=== PATIENT | male | born 1960 | race Caucasian/White ===

== ENCOUNTER 2016-06-08 12:39 | Inpatient (IN) ==
[2016-06-08] MEDS ORDERED: *HR* Ticagrelor 90 MG TABLET PO ONE (12:47)
[2016-06-08] MEDS ORDERED: Aspirin 81 MG TAB.CHEW ONE (12:47)
[2016-06-08] MEDS ORDERED: *HR* Morphine 2 MG/ML SYRINGE IVP ONE (12:48)
[2016-06-08] MEDS ORDERED: 0.9 % Sodium Chloride 1,000 ML ONE ×2 (12:48→12:57)
[2016-06-08] MEDS ORDERED: *HR* Heparin 5,000 UNIT/ML VIAL ONE (12:48)
[2016-06-08] MEDS ORDERED: *HR* Ticagrelor 90 MG TABLET ONE ×2 (12:48→14:05)
[2016-06-08] MEDS ORDERED: Aspirin 325 MG TABLET PO ONE (12:48)
[2016-06-08] MEDS ORDERED: Ondansetron 4 MG/2 ML VIAL IVP ONE (12:49)
[2016-06-08] MEDS ORDERED: *HR* Heparin 5,000 UNIT/ML VIAL IVP ONE (12:50)
--- NOTE | 2016-06-08 12:54 | Emergency Department Note ---
Disposition Clinical Impression: ST elevation myocardial infarction (STEMI), Hypertension, Hyperlipidemia, Smoker, Obesity, CAD (coronary artery disease) Disposition: Admitted As Inpatient Condition: Fair Referrals: NO,PCP [Primary Care Provider] - Forms: ED Satisfaction Letter General Adult HPI - General Chief complaint: ED Chest Pain Stated complaint: chest pain Time Seen by Provider: 06/08/16 12:47 Source: EMS Limitations: no limitations - History of Present Illness HPI Narrative: 55-year-old male reports to the ED via EMS, he reports he developed midsternal chest pain radiating to both arms and to the back about 10 minutes prior to calling EMS. The patient has a history of known coronary artery disease with multiple stents. The patient has a history of hypertension and hyperlipidemia obesity and smoking as well. The patient describes midsternal pain which has been unrelenting with nitroglycerin. The pain radiates to the back and both arms. The pain is not associated with breathing. There is no history of fever or rash. There is no history of fall injury coughing up blood or seizure. No leg swelling or pain. The patient denies previous histories of DVT PE or cancer. The patient denies a previous history of thoracic or abdominal aneurysm. There has been no trauma. No offing. No vomiting or diarrhea. No trouble walking talking hearing seeing or speaking, no history of dysarthria or confusion. The patient reports he has been evaluated at this institution before for coronary disease and has had a catheterization here. Pain Scale: 9 - Related Data Home Medications Medication Instructions Recorded Confirmed Aclidinium Katy [Tudorza 400 mcg IH BID 11/15/15 06/04/16 Pressair] Albuterol Sulfate [Proair 2 puff PO DAILY 11/15/15 06/04/16 Respiclick] Aspirin [Lo-Dose Aspirin EC] 81 mg PO DAILY 11/15/15 06/04/16 Butalbital/Aspirin/Caffeine 1 each PO Q4H PRN 11/15/15 06/04/16 [Fiorinal 50-325-40 mg Capsule] ClonazePAM [Klonopin] 1 mg PO BID 11/15/15 06/04/16 Clopidogrel [Plavix] 75 mg PO DAILY 11/15/15 06/04/16 Lisinopril [Zestril] 40 mg PO DAILY 11/15/15 06/04/16 Lovastatin [Altoprev] 40 mg PO DAILY 11/15/15 06/04/16 Metoprolol [Lopressor] 50 mg PO BID 11/15/15 06/04/16 Nitroglycerin [Nitrostat] 0.4 mg SL Q2-5MIN PRN 11/15/15 06/04/16 Oxycodone HCl/Acetaminophen 1 tab PO Q6H PRN 11/15/15 06/04/16 [Percocet 10-325 mg Tablet] Paroxetine [Paxil] 20 mg PO DAILY 11/15/15 06/04/16 Pregabalin [Lyrica] 150 mg PO BID 11/15/15 06/04/16 Roflumilast [Daliresp] 500 mcg PO DAILY 11/15/15 06/04/16 Aclidinium Katy [Tudorza 400 mcg IH BID 06/04/16 06/04/16 Pressair] Albuterol Sulfate [Ventolin Hfa] 18 gm IH BID 06/04/16 06/04/16 Albuterol Sulfate [Ventolin Hfa] 18 gm IH PRN PRN 06/04/16 06/04/16 Butalb/Acetaminophen/Caffeine 1 each PO PRN PRN 06/04/16 06/04/16 [Fioricet 50-300-40 mg Capsule] Previous Rx's Medication Instructions Recorded Isosorbide MONOnitrate (24 HR) 30 mg PO BID #0 11/15/15 [Imdur] PredniSONE 40 mg PO DAILY #10 tablet 06/04/16 Allergies Allergy/AdvReac Type Severity Reaction Status Date / Time acetaminophen AdvReac Nausea Verified 06/08/16 13:01 [From Darvocet-N] gabapentin [From Neurontin] AdvReac Nausea Verified 06/08/16 13:01 promethazine [From Phenergan] AdvReac See Verified 06/08/16 13:01 Comments propoxyphene AdvReac Nausea Verified 06/08/16 13:01 [From Darvocet-N] All systems ED: reviewed and negative except as stated. Past Medical History - Past Medical History Medical history: Reports: asthma, COPD, coronary artery disease, GERD, hyperlipidemia, hypertension, other Surgical history: Reports: angioplasty/stent, cholecystectomy, orthopedic, other Psychiatric history: Reports: depression - Social History Smoking Status: Current every day smoker Smokeless Tobacco Status: No Alcohol use: Reports: none Drug use: Reports: none Physical Exam - General Limitations: no limitations General appearance: alert - Head Head exam: atraumatic, normocephalic, normal inspection - Eye Eye exam: Present: normal appearance, PERRL, EOMI - ENT ENT exam: normal exam, normal oropharynx, mucous membranes moist - Neck Neck exam: Present: normal inspection, full ROM, trachea midline - Chest Chest inspection: Present: normal inspection, symmetric chest wall rise. Absent : tenderness - Respiratory Respiratory exam: Present: normal lung sounds bilaterally. Absent: respiratory distress - Cardiovascular Cardiovascular exam: Present: regular rate, normal rhythm, normal heart sounds - Abdominal Exam Abdominal exam: Present: soft, Non-Tender. Absent: tenderness, distention, guarding, rebound, rigidity, pulsatile mass - Extremities Exam Extremities exam: Present: normal inspection, full ROM, normal capillary refill. Absent: tenderness, pedal edema, joint swelling, calf tenderness - Expanded Lower Extremity Exam Lower leg exam: Absent: Homans' sign Neurovascular/Tendon exam: Present: normal capillary refill. Absent: pulse deficit, motor deficit, sensory deficit, tendon deficit - Back Exam Back exam: Present: normal inspection, full ROM. Absent: tenderness, CVA tenderness (R), CVA tenderness (L), vertebral tenderness - Neurological Exam Neurological exam: Present: alert, oriented X3, CN II-XII intact. Absent: motor sensory deficit - Psychiatric Psychiatric exam: Present: normal affect, normal mood - Skin Skin exam: Present: warm, dry, intact, normal color. Absent: rash, cyanosis, diaphoresis, erythema, pallor, mottled Course Vital Signs Temperature 97.3 F L 06/08/16 12:40 Pulse Rate 73 06/08/16 12:40 Respiratory Rate 18 06/08/16 12:40 Blood Pressure 180/107 06/08/16 12:40 O2 Sat by Pulse Oximetry 98 06/08/16 12:40 Temperature 97.3 F L 06/08/16 12:40 Pulse Rate 83 06/08/16 12:50 Respiratory Rate 20 06/08/16 12:50 Blood Pressure 170/105 06/08/16 12:50 O2 Sat by Pulse Oximetry 98 06/08/16 12:50 Oxygen Delivery Oxygen Delivery Nasal Cannula Medical Decision Making - MDM Narrative Medical decision making narrative: The patient's EKG shows significant ST elevations in V3 45. Compared to a previous EKG this is a significant change, he appears to have an STEMI based on electrocardiography. The patient has known coronary disease and describes symptoms consistent with acute coronary syndrome. Upon review the EKG I called a code STEMI and spoke with Dr. Goff ui developer with [employer] regarding our findings and clinical concerns regarding STEMI. Dr. Goff recommended Brilinta and a heparin bolus. These were ordered. Morphine and Zofran were also ordered as well as aspirin. The patient has had no recent trauma, he denies rectal bleeding or any bleeding concerns, he has no personal history of intra- abdominal or intrathoracic aneurysm. Initial laboratory and radiographic studies were ordered. The patient is currently stable pending catheter lab intervention. - Medical Records Medical records reviewed: Yes I reviewed the patient's medical records.
[2016-06-08] MEDS ORDERED: *HR* Midazolam HCl 5 MG/5 ML VIAL IVP ONE (12:56)
[2016-06-08] MEDS ORDERED: *HR* FentaNYL (PF) 250 MCG/5 ML VIAL ONE (12:56)
[2016-06-08] MEDS ORDERED: Heparin 1,000 UNITS/500 mL NS 500 ML ONE (12:57)
[2016-06-08] MEDS ORDERED: *HR* Heparin 10,000 UNIT/10 ML VIAL ONE (12:57)
[2016-06-08 13:03] LABS: Basophils % 0.1 %; Hematocrit 44.8 % (37.5-50.1); Hemoglobin 15.6 g/dL (12.9-16.9); Immature Granulocytes % 1.2 % (0-4); Lymphocytes # 1.4 K/mcL (0.6-4.6); Lymphocytes % 6.9 %; Mean Corpuscular HGB Conc 34.8 g/dL (31.6-35.5); Mean Corpuscular Hemoglobin 29.2 pg (28.0-33.3); Mean Corpuscular Volume 83.9 fL (83.0-100.0); Mean Platelet Volume 10.9 fL (9.4-12.4); Monocytes # 1.5 K/mcL (0.0-1.3); Monocytes % 7.4 %; Neutrophils # 17.4 K/mcL (1.6-8.9); Platelet Count 221 K/mcL (140-400); Red Blood Count 5.34 M/mcL (4.19-5.50); Red Cell Distribution Width 12.4 % (11.5-14.5); Segmented Neutrophils % 84.4 %
[2016-06-08] MEDS ORDERED: Nitroglycerin 1,000 MCG/10 ML VIAL IV ONE (13:03)
[2016-06-08 13:12] LABS: INR 1.1; Prothrombin Time 11.5 Seconds (9.4-12.1)
[2016-06-08 13:14] LABS: Activated Partial Thrombo Time 26.3 Seconds (26.0-36.0)
[2016-06-08 13:17] LABS: BUN/Creatinine Ratio 19 (6-26); Blood Urea Nitrogen 21 mg/dL (8-26); Calcium 9.7 mg/dL (8.6-10.8); Carbon Dioxide 22 mEq/L (19-29); Chloride 102 mEq/L (98-109); Glucose 131 mg/dL (70-99); Osmolality,Calculated 287 (280-300); Potassium 4.2 mEq/L (3.5-4.5); Sodium 136 mEq/L (136-145); eGFR For African Americans > 60 (> 60); eGFR For Non-African Americans > 60 (> 60)
[2016-06-08 13:18] LABS: Albumin 4.2 g/dL (3.5-5.0); Albumin/Globulin Ratio 1.2 (1.1-2.2); Bilirubin,Direct 0.2 mg/dL (0.0-0.5); Bilirubin,Indirect 0.3 mg/dL (0.0-1.2); Bilirubin,Total 0.5 mg/dL (0.2-1.2); Globulin 3.5 g/dL (2.4-3.5); Total Protein 7.7 g/dL (6.0-8.3)
[2016-06-08] MEDS ORDERED: Nitroglycerin 25 MG/250 ML INFUS..BTL IVC ONE (13:47)
[2016-06-08] MEDS ORDERED: Nitroglycerin 0.4 MG TAB.SUBL SL PRN (14:23)
--- NOTE | 2016-06-08 14:27 | Invasive Diagnostic Lab Proc ---
Name: Christophe Loredo Date of Study: 06/08/2016 Date: 1960 Ht: 66.9in Medical Record#: [id number] Age: 55 Wt: 196.21lb Gender: Male BSA: 2. Order #: [id number] BMI: 30.8 Physicians Procedure Physician: Georgia Goff MD, FACC Referring MD: Mariaa Paul, JORJE Referring MD: Staff Name Position Time In La Rebolledo RT (R) Scrub 01:15 PM Zac Weaver RN Spray Machine Operator 01:15 PM Rosie Moore RN Monitor 01:16 PM Indications Indication STEMI Procedures Performed Procedure PRQ CARD REVASC VT 1 VSL L HRT ARTERY/VENTRICLE ANGIO Pre-Procedure Checklist Informed consent is complete signed and on chart. H\\T\\P is on chart. ID band is on and ID verified with patient. Pt not NPO for procedure and MD aware. The procedure was described for the patient and questions were answered. Blood Pressure: 180/107 ECG is on chart. Rhythm: NSR Plan of Care Patient will tolerate the procedure without complications. Adequate level of comfort will be maintained. Hemodynamics will remain stable Patient will recover from procedure without complications. Respiratory function will be maintained. Cardiac rhythm will remain stable. Patient temperature will be maintained. Patient and/or family have verbalized understanding of the procedure. Patient Education Intravenous Access Time IV Size Location DC'd Fluid/Drip Rate Units RN 12:55 PM 18g 1 1/4" Patent On Arrival Lt Antecubital 0.9NaCl 25 ml/hr Zac Weaver RN 12:55 PM 18g 1 1/4" Patent On Arrival Rt Antecubital Allergies gabapentin darvocet acetaminophen promethazine Vital Signs Time BP (mmHg) HR (bpm) O2 Sat. RR (bpm) LOC 12:58 PM 180 / 107 73 98 % 18 5 = Fully awake and oriented or at pre-proc level 01:20 PM / % 5 = Fully awake and oriented or at pre-proc level 01:20 PM / % 5 = Fully awake and oriented or at pre-proc level 01:36 PM / % 5 = Fully awake and oriented or at pre-proc level 01:39 PM / % 5 = Fully awake and oriented or at pre-proc level 01:16 PM 162 / 90 75 100 % 14 01:20 PM 147 / 106 85 98 % 16 01:25 PM 164 / 99 99 97 % 14 01:30 PM 151 / 96 99 100 % 11 01:35 PM 160 / 86 103 100 % 17 01:40 PM 159 / 92 103 99 % 7 01:45 PM 147 / 90 98 100 % 17 01:50 PM 163 / 92 90 100 % 19 01:55 PM 166 / 99 85 100 % 11 Procedural Medications Time Medication Dose Units Method Given By 01:17 PM Oxygen 2 L/min nasal cannula Zac Weaver RN 01:18 PM Lidocaine 2% 16 ml Subcutaneous Georgia Goff MD, [facility] 01:22 PM Lidocaine 2% 12 ml Subcutaneous Georgia Goff MD, [facility] 01:22 PM Versed 2 mg Intravenous Zac Weaver RN 01:22 PM Fentanyl 50 mcg Intravenous Zac Weaver RN 01:26 PM Oxygen 5 L/min nasal cannula Zac Weaver RN 01:30 PM Heparin 500 units Intravenous Zac Weaver RN 01:34 PM Fentanyl 50 mcg Intravenous Zac Weaver RN 01:34 PM Nitroglycerin 200 mcg Intracoronary Georgia Goff MD, [facility] 01:35 PM Heparin 2000 units flush bowl 01:47 PM Nitroglycerin 10 mcg/min Intravenous Zac Weaver RN 01:47 PM Brilinta 180 mg Orally Zac Weaver RN ASA Classification: Emergent Procedure: ASA score is assumed Lizz Score Preprocedure Postprocedure Activity 2- Moves 4 extremities sustained head lift Activity 2- Moves 4 extremities sustained head lift Circulation 2- SBP +/= 20 points of pre-anesthetic level Circulation 2- SBP +/= 20 points of pre-anesthetic level Consciousness 2- Awake and alert oriented x 3 Consciousness 2- Awake and alert oriented x 3 O2 Saturation 2- Able to maintain O2 satruation of 92% on room air O2 Saturation 2- Able to maintain O2 satruation of 92% on room air Respiratory 2- Able to deep breathe and cough well Respiratory 2- Able to deep breathe and cough well Total Score 10 Total Score 10 Contrast Agent: Isovue Diagnostic Contrast: 155 ml Total Contrast: 155 ml Fluoro Dose: 585 mGy Activated Clotting Time Time Seconds to Clot 01:28 PM 206 01:48 PM 219 Procedure Log Time Note Enter By 01:01 PM CathStat 01:14 PM Case Start 01:14 PM Vitals capture started with the following parameters, Patient=Adult, Interval=5 min, Initial Qgwfayby=162 mmHg, Deflation Rate=5 mmHg, Cuff placed on Right Arm 01:15 PM Meet and greet completed csmith :15 PM Sign in performed according to hospital policy. csmith 01:15 PM Procedure start 13:15 csmith 01:15 PM Pt arrived to laundry laborer 2 at 13:15 csmith 01:15 PM La Rebolledo RT (R) Position: Scrub Time in: :15 csmith 01:16 PM Zac Weaver RN Position: Spray Machine Operator Time in: 13:15 csmith 01:16 PM HR=75 bpm, OEXK=025/90 mmhg, EzH4=024.0 %, Resp=14 B/min, Comment=SR 01:16 PM Rosie Moore RN Position: Monitor Time in: :16 csmith 01:16 PM Patient charges- Angio tray pack, Navilyst 3mm J, Pulse Oximetry and ACIST tubing and transducer csmith :16 PM Recorded ECG: HR=71 Condition=Condition 1 01:17 PM Case Delayed csmith :17 PM Time: 13:17 Oxygen on at 2 L/min per nasal cannula by Zac Weaver RN csmith 01:17 PM labs pending csmith :18 PM Time: 13:18 16 ml Lidocaine 2% to right groin Subcutaneous Given by Georgia Goff MD, [facility] csmith 01:19 PM Unsuccessful access attempt # 1 into the right Femoral artery. Manual pressure applied to achieve hemostasis.. csmith 01:20 PM HR=85 bpm, HCXE=817/106 mmhg, SpO2=98.0 %, Resp=16 B/min, Comment=SR :20 PM Time: 13:20 Patient comfortable and pain free: Yes csmith :20 PM Time: 13:20LOC: 5 = Fully awake and oriented or at pre-proc level csmith :22 PM Time: 13:22 12 ml Lidocaine 2% to left groin Subcutaneous Given by [facility] MD, [facility] : PM Time: 13:22 Versed 2 mg Intravenous [facility] : PM Time: 13:22 Fentanyl 50 mcg Intravenous Given by Zac Weaver RN csmith 01:23 PM Access obtained by percutaneous puncture. 6Fr 10cm Terumo Rutherford sheath placed in left Femoral artery. [id number] csmith 01:23 PM 5Fr FL 3.5 catheter inserted over the wire [id number] csmith 01:24 PM Recorded Pressure: Ao, HR=86, Condition=Condition 1 (Aorta) Ao 136/88/110 01:24 PM LCA angiography performed in multiple views. csmith 01:24 PM Catheter removed csmith 01:25 PM 6Fr EBU 3.0 Medtronic guide catheter was used to cannulate the PCI vessel successfully. reused? No csmith :25 PM .014 Prowater 180cm guide wire across target lesion- successful. reused? No csmith 01:25 PM Inflation device was opened. csmith 01:25 PM HR=99 bpm, FCDZ=238/99 mmhg, SpO2=97.0 %, Resp=14 B/min, Comment=SR : PM Time: 13:26 Oxygen on at 5 L/min per nasal cannula by Zac Weaver RN csmith 01:27 PM Lesion found in Mid LAD. Pre Stenosis: 100 Pre JANA Flow: 0: No Flow/No perfusion csmith 01:27 PM Mid/Distal Left Anterior Descending Coronary Artery and diagonal branches with 100% stenosis. csmith 01:28 PM 2.0 mm x 15 mm Emerge Monorail balloon across target lesion- successful. reused? No csmith : PM Recorded Pressure: Ao, HR=95, Condition=Condition 1 (Aorta) Ao 144/77/106 01:28 PM At 13:28 the ACT was 206 seconds. csmith 01:30 PM Balloon inflated @ 8 silas for 20 seconds csmith 01:30 PM HR=99 bpm, KDGO=477/96 mmhg, EbH0=333.0 %, Resp=11 B/min, Comment=SR 01:30 PM Balloon inflated @ 10 silas for 30 seconds csmith 01:30 PM Time: 13:30 Heparin 500 units Intravenous Given by Zac Weaver RN csmith 01:31 PM Balloon catheter removed intact. csmith 01:32 PM 2.25mm x 20mm Synergy drug-eluting stent across target lesion- successful Lot #[id number] csmith 01:33 PM Stent deployed @ 12 silas for 30 seconds csmith :34 PM Time: 13:34 Fentanyl 50 mcg Intravenous Given by Zac Weaver RN csmith 01:34 PM Stent delivery system removed intact. csmith :34 PM Time: 13:34 Nitroglycerin 200 mcg Intracoronary Given by Georgia Goff MD, [facility] csmith 01:35 PM Time: 13:35 Heparin 2000 units flush bowl Given by csmith 01:35 PM XS=112 bpm, AGVB=924/86 mmhg, MbM0=604.0 %, Resp=17 B/min, Comment=SR 01:36 PM Time: 13:20LOC: 5 = Fully awake and oriented or at pre-proc level csmith 01:36 PM Time: 13:20 Patient comfortable and pain free: Yes csmith 01:36 PM Guide wire removed intact. csmith 01:38 PM Recorded Pressure: Ao, WI=733, Condition=Condition 1 (Aorta) Ao 145/82/109 01:39 PM Guide catheter removed intact. csmith 01:39 PM Time: 13:36LOC: 5 = Fully awake and oriented or at pre-proc level csmith 01:39 PM Time: 13:36 Patient comfortable and pain free: Yes csmith 01:39 PM 5Fr FR 4 catheter inserted over the wire [facility] csmith 01:39 PM Coronary Dominance: Left csmith 01:40 PM Pressure channel 1 zeroed. 01:40 PM Recorded Pressure: LV, FK=828, Condition=Condition 1 (Left Ventricle) LV 161/20/25 01:40 PM GV=975 bpm, FSSR=531/92 mmhg, SpO2=99.0 %, Resp=7 B/min, Comment=SR 01:40 PM Recorded Pressure: LV, Ao, HR=93, Condition=Condition 1 (Left Ventricle) LV 158/17/53, (Aorta) Ao 167/99/128 01:40 PM Catheter selectively placed in left ventricle csmith 01:41 PM cath pulled back from LV csmith 01:42 PM Recorded Pressure: Ao, FG=111, Condition=Condition 1 (Aorta) Ao 31/25/27 01:42 PM Catheter removed csmith 01:42 PM 5Fr Pigtail catheter inserted over the wire DN csmith 01:43 PM Catheter selectively placed in left ventricle csmith 01:43 PM Bolus angiogram of left Ventricle complete: 8 ml/sec for a total of 24 mls csmith 01:44 PM Bolus angiogram of left Femoral complete: 2 ml/sec for a total of 4 mls csmith 01:45 PM Catheter removed csmith 01:45 PM Procedure completed at 13:45 csmith 01:45 PM HR=98 bpm, QGOL=563/90 mmhg, JjA6=728.0 %, Resp=17 B/min, Comment=SR 01:46 PM Sign out completed: Radiation Dose 585.14 mGy Fluoro Time: 6.3 Isovue 370 - 200ml contrast 155 ml given by Georgia Goff MD, [facility]. Complications: NoneCardiac Rehab Consult needed: YesConfirmed administered medications: Yes csmith 01:46 PM Isovue 370 - 200ml,1 Bottle(s) used. csmith 01:46 PM Sheath left in place to be pulled on floor/holding area csmith 01:46 PM Post ECG NSR with ST elevation csmith 01:47 PM 13:46 Post Pulses Bilateral DP \\T\\ PT 2+ csmith 01:47 PM Time: 13:47 Nitroglycerin 10 mcg/min Intravenous Given by Zac Weaver RN Florentino pump csmith 01:47 PM Time: 13:47 Brilinta 180 mg Orally Given by Zac Weaver RN csmith 01:48 PM Time: 13:39LOC: 5 = Fully awake and oriented or at pre-proc level csmith 01:48 PM Time: 13:39 Patient comfortable and pain free: Yes csmith 01:48 PM At 13:48 the ACT was 219 seconds. csmith 01:49 PM Information taught PCI csmith 01:50 PM Education needs Plan of Care and Responsibilities of Patient in Care csmith 01:50 PM Learning barriers :None csmith 01:50 PM Education Methods Verbal csmith 01:50 PM Education evaluation Able to repeat information csmith 01:50 PM HR=90 bpm, WKPX=896/92 mmhg, WiY0=676.0 %, Resp=19 B/min, Comment=SR 01:50 PM Site status No bleeding/hematoma - Lt Groin as reported by La Rebolledo RT (R) at 13:50 csmith 01:50 PM Opsite applied csmith 01:51 PM Plavix, Effient or Brilinta given Yes csmith 01:55 PM HR=85 bpm, EKID=952/99 mmhg, PyF0=213.0 %, Resp=11 B/min, Comment=SR 01:55 PM right groin looks ok csmith 01:58 PM Lesion found in Proximal LAD. Pre Stenosis: 50 Pre JANA Flow: 3: Complete and Brisk Flow/Perfusion csmith 01:58 PM Lesion found in 1st Diagonal. Pre Stenosis: 40 Pre JANA Flow: 3: Complete and Brisk Flow/Perfusion csmith 01:59 PM Lesion found in Proximal Circumflex. Pre Stenosis: 30 Pre JANA Flow: 3: Complete and Brisk Flow/Perfusion csmith 01:59 PM Lesion found in Mid Circumflex. Pre Stenosis: 30 Pre JANA Flow: 3: Complete and Brisk Flow/Perfusion csmith 01:59 PM Lesion found in 1st Marginal. Pre Stenosis: 70 Pre JANA Flow: 3: Complete and Brisk Flow/Perfusion csmith 01:59 PM Lesion found in 2nd Marginal. Pre Stenosis: 70 Pre JANA Flow: 3: Complete and Brisk Flow/Perfusion csmith 02:02 PM Lesion found in Left PDA. Pre Stenosis: 50 Pre JANA Flow: 3: Complete and Brisk Flow/Perfusion csmith 02:03 PM Lesion found in Mid RCA. Pre Stenosis: 90 Pre JANA Flow: 3: Complete and Brisk Flow/Perfusion csmith 02:03 PM Proximal Left Anterior Descending Coronary Artery with 50% stenosis. csmith 02:03 PM Circumflex, Obtuse Marginal, Left Posterior Descending, and Left Posterolateral Coronary Arteries with 70 % stenosis. csmith 02:04 PM Right Coronary, Right Posterior Descending Arteries with Right Posterolateral and Acute Marginal branches with 90 % stenosis. csmith 02:15 PM Report given to Rashida CROWDER Pt taken to ICU Room #2. 14:14 csmith 02:15 PM Delay to floor No csmith 02:15 PM Patient out of room: 14:15 csmith 02:15 PM Family placed in consult room. csmith Complications Complication None Hemodynamics Pressures Site Systolic/A Wave Diastolic/V Wave Mean AO 136 88 110 AO 144 77 106 AO 145 82 109 LV 161 20 25 LV 158 17 53 AO 167 99 128 AO 31 25 27 Post Procedure Information Rhythm: NSR Post procedural instructions were given Site Checks Time Location Status Staff Sheath In? Note 01:50 PM Lt Groin No bleeding/hematoma La Rebolledo RT (R) Pulses Time Site Pre-Procedure Post-Procedure Note 1:46:00 PM Bilateral DP \\T\\ PT 2+ Updated by Zac Weaver RN on 06/08/2016 2:21:33 PM electronically signed on 06/08/2016 2:22:10 PM with status of Final
[2016-06-08] MEDS ORDERED: Nitroglycerin 25 MG/250 ML INFUS..BTL IVC SCH (14:30)
--- NOTE | 2016-06-08 14:38 | Cardiology History & Physical ---
Date of Encounter: 06/08/16 Time of Encounter: 13:00 Assessment and Plan (1) ST elevation myocardial infarction (STEMI) Current Visit: Yes Status: Acute Pt currently experiencing acute anterior STEMI. Will proceed immediately to cardiac catheterization lab for emergent LHC and probable PCI. All risks/ benefits of procedure discussed with pt. Agreeable to proceed. Further recommendations pending catheterization results. The assessment and plan as outlined above was discussed with the patient and/or family members who expressed understanding and agreement. All questions were answered. Qualifiers: Involved coronary artery: LAD coronary artery Qualified Code(s): I21.02 - ST elevation (STEMI) myocardial infarction involving left anterior descending coronary artery (2) CAD (coronary artery disease) Current Visit: Yes Status: Chronic Qualifiers: Coronary Disease-Associated Artery/Lesion type: [place] artery [place] vs. transplanted heart: [place] heart Associated angina: with unstable angina Qualified Code(s): I25.110 - Atherosclerotic heart disease of [place] coronary artery with unstable angina pectoris (3) Hyperlipidemia Current Visit: No Status: Chronic Qualifiers: Hyperlipidemia type: unspecified Qualified Code(s): E78.5 - Hyperlipidemia , unspecified (4) Hypertension Current Visit: No Status: Chronic Qualifiers: Hypertension type: essential hypertension Qualified Code(s): I10 - Essential (primary) hypertension (5) Smoker Current Visit: Yes Status: Chronic Smoking cessation. History of Present Illness Chief complaint: CHEST PAIN HPI: Mr. Loredo is a 55 year old male with CAD s/p PCI, HTN, hyperlipidemia presents to [facility] with c/o CP. 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 Was at home and had acute onset of SSCP radiating to arms b/l. Associated with SOB. EMS contacted. EKG by squad demonstrated anterior STEMI. Pt brought to [place] ED for further evaluation/tx. Has known hx of CAD. Has had PCI of LAD and L PDA in past. Most recent cardiac catheterization in November 2015 demonstrated patent LAD and L PDA stents with diffuse small vessel disease. Pt has stable exertional angina until today. States compliant with all meds, including Plavix and BP meds. Continues to smoke. Past Med Surg Social Fam HX - Past Medical History Medical history: asthma, COPD, coronary artery disease, GERD, hyperlipidemia, hypertension, other Psychiatric history: depression - Past Surgical History Surgical History: angioplasty/stent, cholecystectomy, orthopedic, other - Social History Smoking Status: Current every day smoker Smokeless Tobacco Status: No Alcohol use: none Drug use: none - Family History Father Living Status: Cause of : stroke Mother Living Status: Cause of : heart disease, DM Medications and Allergies Aclidinium [place] [Tudorza Pressair] 400 mcg IH BID 11/15/15 [History] Albuterol Sulfate [Proair Respiclick] 2 puff PO DAILY 11/15/15 [History] Aspirin [Lo-Dose Aspirin EC] 81 mg PO DAILY 11/15/15 [History] Butalbital/Aspirin/Caffeine [Fiorinal 50-325-40 mg Capsule] 1 each PO Q4H PRN [History] ClonazePAM [Klonopin] 1 mg PO BID 11/15/15 [History] Clopidogrel [Plavix] 75 mg PO DAILY 11/15/15 [History] Isosorbide MONOnitrate (24 HR) [Imdur] 30 mg PO BID #0 11/15/15 [Rx] Lisinopril [Zestril] 40 mg PO DAILY 11/15/15 [History] Lovastatin [Altoprev] 40 mg PO DAILY 11/15/15 [History] Metoprolol [Lopressor] 25 mg PO BID 11/15/15 [History] Nitroglycerin [Nitrostat] 0.4 mg SL Q2-5MIN PRN 11/15/15 [History] Oxycodone HCl/Acetaminophen [Percocet 10-325 mg Tablet] 1 tab PO Q6H PRN [History] Paroxetine [Paxil] 20 mg PO DAILY 11/15/15 [History] Pregabalin [Lyrica] 150 mg PO BID 11/15/15 [History] Roflumilast [Daliresp] 500 mcg PO DAILY 11/15/15 [History] Aclidinium [place] [Tudorza Pressair] 400 mcg IH BID 06/04/16 [History] Albuterol Sulfate [Ventolin Hfa] 18 gm IH BID 06/04/16 [History] Albuterol Sulfate [Ventolin Hfa] 18 gm IH PRN PRN 06/04/16 [History] PredniSONE 40 mg PO DAILY #10 tablet 06/04/16 [Rx] Allergies acetaminophen [From Darvocet-N] Adverse Reaction (Verified 06/08/16 13:01) Nausea gabapentin [From Neurontin] Adverse Reaction (Verified 06/08/16 13:01) Nausea promethazine [From Phenergan] Adverse Reaction (Verified 06/08/16 13:01) See Comments anger and agression propoxyphene [From Darvocet-N] Adverse Reaction (Verified 06/08/16 13:01) Nausea ROS unobtainable: other (emergency) All Systems Review: A 10-system review of systems was performed and is negative for pertinent findings except as documented above in the HPI. - Cardiovascular Cardiovascular: as per HPI Physical Examination General: Other (moderate distress, appears uncomfortable) HEENT: Atraumatic, Normocephaly, Mucus Membranes Moist Neck: No JVD, Normal carotid pulses Cardiac: Reg Rate and Rhythm, Normal S1 and S2, No Murmur Lungs: Normal Breath Sounds, No Wheeze, Rales, Rhonchi Neuro: Alert and responsive, No focal deficits noted Abdomen: Soft, Non-Tender Skin: No rashes noted on visualized skin Musculoskeletal: No Chest Wall Tenderness Extremities: No Clubbing, No Cyanosis, No Edema, Normal Pulses Results 06/08/16 12:45 06/08/16 12:45 - EKG Interpretation EKG results cardiology: personally reviewed (NSR, anterior STEMI) - VTE Reasons for not Prescribing Prophylaxis: Not indicated-Anticoagulated or INR therapeutic
[2016-06-08] MEDS: *HR* OxyCODONE/APAP 10/325 TABLET PO PRN (15:35)
--- NOTE | 2016-06-08 17:20 | Invasive Diagnostic Lab ---
Name: Christophe Loredo Date of Study: 06/08/2016 Date: 1960 Ht: 170.0 cm /66.9 in Medical Record#: [id number] Age: 55 Wt: 89. kg / 196.21 lb Account/Order#: [id number] Gender: Male BSA: 2. Order #: [id number] Fluoro Dose: 585 mGy BMI: 30.8 Procedure Physician: Georgia Goff MD, [facility] Referring MD: Mariaa Paul, NURSING UNIT MANAGER Referring MD: Procedures Performed: PCI of Acute NV LEFT HEART CATH Indications: STEMI Impressions: Triple vessel coronary artery disease. Previously stented L PDA, mid LAD patent. Patient had successful PTCA/Drug-Eluting Stent placement in mid LAD. Segmental LV dysfunction with preserved EF 55% Recommendations: DAPT for one year minimum uninterrupted. Optimal medical therapy of patient's disease. Aggressive risk factor modification. Smoking cessation. History/Risk Factors: hptn hyperlipidemia smoker cad pci 11/15/15 lung disease Procedure Access obtained in the left Femoral artery by percutaneous puncture Patient had successful PTCA/Drug-Eluting Stent placement in the mid LAD. Complications: None Contrast: Isovue 155ml Hemodynamics: Pressures Site Systolic/ A Wave Diastolic/ V Wave End Diastolic/ Mean HR AO 136 88 110 86 AO 144 77 106 95 AO 145 82 109 103 LV 161 20 25 102 LV 158 17 53 92 AO 167 99 128 97 AO 31 25 27 101 LV Ventriculography Ejection Method: LV Gram Ejection Fraction: 55% Wall Motion: ALEXANDRE Anterobasal Normal Anterolateral Normal Apical: Dyskinesis Inferoapical Normal Inferobasal Normal Coronary Dominance: Left Lesion Findings/Interventions * Left Main Coronary Artery The LMCA is angiographically free of disease. * Left Anterior Descending There is a 50% stenosis in the Proximal LAD. The lesion has a JANA flow of 3. There is a 15 mm long, 100% stenosis in the Mid LAD. The lesion has a JANA flow of 0 and has thrombus present. An intervention was performed on the Mid LAD with a final stenosis of 0%. There were no lesion complications. The final JANA flow was 3. There is a 40% stenosis in the 1st Diagonal. The lesion has a JANA flow of 3. * Circumflex There is a 30% stenosis in the Proximal Circumflex. The lesion has a JANA flow of 3. There is a 30% stenosis in the Mid Circumflex. The lesion has a JANA flow of 3. There is a 70% stenosis in the 1st Marginal- small vessel. The lesion has a JANA flow of 3. There is a 70% stenosis in the 2nd Marginal- small vessel. The lesion has a JANA flow of 3. There is a 50% stenosis in the Left PDA. The lesion has a JANA flow of 3. * Right Coronary Artery Small, nondominant vessel There is a 90% stenosis in the Mid RCA. The lesion has a JANA flow of 3. Interventional Device(s) Vessel Segment Type Name Diameter (mm) Length (mm) Mid LAD balloon Emerge Monorail 2 15 Mid LAD drug-eluting stent Synergy RX 2.25 20 Updated by Georgia Goff MD, FACC on 06/08/2016 5:11:58 PM Georgia Goff MD, FACC electronically signed on 06/08/2016 5:13:13 PM with status of Final
[2016-06-08] MEDS ORDERED: *HR* Atropine Sulfate 1 MG/10 ML SYRINGE ONE (19:36)
[2016-06-08] MEDS: clonazePAM 1 MG TABLET PO SCH (20:50)
[2016-06-08] MEDS: Pregabalin 75 MG CAPSULE PO SCH (20:50)
[2016-06-08] MEDS: (Aclidinium Bromide [Tudorza Pressair] 400 MCG) IH SCH (20:51)
[2016-06-09] MEDS: *HR* OxyCODONE/APAP 10/325 TABLET PO PRN ×2 (01:31→22:20)
[2016-06-09 07:05] LABS: Basophils % 0.3 %; Eosinophils # 0.1 K/mcL (0.0-0.6); Eosinophils % 0.4 %; Hematocrit 41.6 % (37.5-50.1); Immature Granulocytes % 0.9 % (0-4); Lymphocytes # 2.6 K/mcL (0.6-4.6); Lymphocytes % 21.4 %; Mean Corpuscular HGB Conc 33.7 g/dL (31.6-35.5); Mean Corpuscular Volume 86.1 fL (83.0-100.0); Mean Platelet Volume 11.3 fL (9.4-12.4); Monocytes % 8.7 %; Neutrophils # 8.2 K/mcL (1.6-8.9); Platelet Count 175 K/mcL (140-400); Red Blood Count 4.83 M/mcL (4.19-5.50); Red Cell Distribution Width 12.7 % (11.5-14.5); Segmented Neutrophils % 68.3 %
[2016-06-09 07:13] LABS: Hemoglobin A1C 5.2 %
[2016-06-09 07:20] LABS: BUN/Creatinine Ratio 16 (6-26); Blood Urea Nitrogen 14 mg/dL (8-26); Calcium 8.7 mg/dL (8.6-10.8); Carbon Dioxide 19 mEq/L (19-29); Chloride 108 mEq/L (98-109); Chol/HDL Ratio 4.6 (0-4.9); Cholesterol 155 mg/dL (< 200); Glucose 126 mg/dL (70-99); HDL Cholesterol 34 mg/dL (40-59); LDL Cholesterol,Calculated 95 mg/dL (0-99); Osmolality,Calculated 286 (280-300); Sodium 137 mEq/L (136-145); Triglycerides 128 mg/dL (< 150); eGFR For African Americans > 60 (> 60); eGFR For Non-African Americans > 60 (> 60)
[2016-06-09] MEDS ORDERED: amLODIPine 5 MG TABLET PO SCH ×2 (09:00→09:15)
[2016-06-09] MEDS ORDERED: NON-FORMULARY MEDICATION 1 EACH EACH (Albuterol Sulfate [Proair Respiclick] 2 PUFF) PO SCH (09:00)
--- NOTE | 2016-06-09 09:22 | Cardiology Progress Note ---
Date of Encounter: 06/09/16 Time of Encounter: 09:20 Assessment and Plan (1) ST elevation myocardial infarction (STEMI) Current Visit: Yes Status: Acute Presented yesterday with anterior STEMI. Had emergent LHC with ANDREA to 100% occluded mid LAD. Doing well this morning. Denies any chest pain or other new symptoms. Post-cath, he was initially on nitro gtt for BP control, but that has been weaned off. BP remains elevated. Will increase coreg to 12.5mg BID and also increase amlodipine to 5mg daily. Continue all other meds at current doses including aspirin, brilinta, atorvastatin, lisinopril. Will transfer to [facility] today and check a limited TTE for LV function (LVEF was 55% on LVgram during LHC with apical dyskinesis). Anticipate discharge tomorrow morning. Qualifiers: Involved coronary artery: LAD coronary artery Qualified Code(s): I21.02 - ST elevation (STEMI) myocardial infarction involving left anterior descending coronary artery (2) Hypertension Current Visit: Yes Status: Acute Increasing coreg and amlodipine as noted above, continue to monitor. Qualifiers: Hypertension type: essential hypertension Qualified Code(s): I10 - Essential (primary) hypertension Discussion w patient/family: The assessment and plan as outlined above was discussed with the patient and/or family members who expressed understanding and agreement. All questions were answered. Thank you for involving us in the care of your patient. Please call with any questions. Subjective Principal diagnosis: anterior STEMI Interval history: presented with anterior STEMI yesterday afternoon. Had emergent LHC with ANDREA to 100% occluded mid LAD. Doing well this morning. Denies any chest pain or other new symptoms. Objective Vital Signs, Last 4 Hours Temp Pulse Resp BP Pulse Ox 06/09/16 09:00 87 14 145/99 94 L 06/09/16 08:00 109 16 145/99 98 06/09/16 07:53 98.5 F 06/09/16 07:00 79 20 140/103 96 06/09/16 06:00 77 14 131/91 96 General: Conversant, No Apparent Distress HEENT: Atraumatic, Normocephaly, Mucus Membranes Moist Neck: Normal carotid pulses Cardiac: Reg Rate and Rhythm, Normal S1 and S2, No Murmur Lungs: Normal Breath Sounds, No Wheeze, Rales, Rhonchi Neuro: Alert and responsive, No focal deficits noted Abdomen: Soft, Non-Tender Skin: No rashes noted on visualized skin Musculoskeletal: No Chest Wall Tenderness Extremities: No Clubbing, No Cyanosis, No Edema, Normal Pulses Results 06/09/16 06:29 06/09/16 06:29 Lab Results 06/08/16 06/08/16 06/09/16 15:30 20:24 06:29 WBC 12.0 H Hgb 14.0 D Hct 41.6 Plt Count 175 Sodium Potassium Chloride Carbon Dioxide BUN Creatinine Glucose Calcium Troponin I > 50.00 H* > 50.00 H* 06/09/16 06:29 WBC Hgb Hct Plt Count Sodium 137 Potassium 4.0 Chloride 108 Carbon Dioxide 19 BUN 14 Creatinine 0.88 Glucose 126 H Calcium 8.7 Troponin I - Imaging and Cardiology Echo: pending Cardiac cath: report reviewed - EKG Interpretation EKG results cardiology: personally reviewed Consult Discharge Plan - Plan Referrals: Mariaa Paul, [employer] TEACHER [Primary Care Provider] -
[2016-06-09] MEDS: (Aclidinium Bromide [Tudorza Pressair] 400 MCG) IH SCH ×2 (10:16→19:58)
[2016-06-09] MEDS: (Roflumilast [Daliresp] 500 MCG) PO SCH (10:16)
[2016-06-09] MEDS: Aspirin Enteric Coated 81 MG Tablet PO SCH (10:23)
[2016-06-09] MEDS: *HR* Ticagrelor 90 MG TABLET PO SCH ×2 (10:23→19:59)
[2016-06-09] MEDS: *HR* Heparin 5,000 UNIT/ML VIAL SQ SCH ×2 (10:23→19:57)
[2016-06-09] MEDS: Lisinopril 20 MG TABLET PO SCH (10:24)
[2016-06-09] MEDS: predniSONE 20 MG TABLET PO SCH (10:24)
[2016-06-09] MEDS: Pregabalin 75 MG CAPSULE PO SCH ×2 (10:25→19:59)
[2016-06-09] MEDS: clonazePAM 1 MG TABLET PO SCH ×2 (10:25→19:59)
--- NOTE | 2016-06-09 11:37 | ECHO - Doppler Report ---
Limited Echocardiogram Name: Christophe Loredo Date of Study: 06/09/2016 Date: 1960 Ht: 67.0 in Medical Record#: [id number] Age: 55 Wt: 195.0 lb Gender: Male BSA: 2 Order #: [id number] Location: [facility] Room #: ICU2 Reading Physician: Cain Bhakta MD, [facility] Livestock Trucker: America Merino RVT, [facility] Ordering Physician: Cain Bhakta MD, [facility] Primary Physician: Mariaa Paul CNP Indications: STEMI, evaluate LV function Impressions: Mild left ventricular systolic dysfunction, LVEF 45-50%. There are regional wall motion abnormalities, see diagram below. Normal right ventricular size and function. Valvular function was not assessed on this limited study. Left Ventricular Wall Motion: Rest Echo Findings The apex, apical inferior and apical septal graham were akinetic. All other wall segments showed normal motion. Findings: Study Quality * Technically adequate exam. ECG Findings * Normal sinus rhythm. Left Ventricle * Mild left ventricular systolic dysfunction, LVEF 45-50%. There are regional wall motion abnormalities, see diagram below. * Normal LV chamber size and wall thickness. Right Ventricle * Normal right ventricular size and function. Left Atrium * Normal left atrial size. Right Atrium * Normal right atrial size. Aorta * Normally sized aortic root. Pericardium * There is a trivial pericardial effusion present. History Hypertension Hypercholesteremia History of Smoking Years 42 Packs 2 Family History of CAD History of CAD/PTCA Myocardial Infarction 06/08/2013 a Previous Echo was performed. Measurements: BP: 131/ 91 2D Normal Values RVIDd: 2.70 cm IVSd: 1.00 cm 0.6 - 1.0 cm LVIDd: 4.40 cm 3.7 - 5.6 cm LVPWd: 1.00 cm 0.6 - 1.1 cm LVIDs: 2.60 cm 1.5 - 3.6 cm AO: 2.90 cm < 4.0 cm %FS: 40.90 cm >25 % Updated by Cain Bhakta MD, [facility] on 06/09/2016 11:31:09 AM electronically signed on 06/09/2016 11:32:13 AM with status of Final Wall Motion Ramires: 1=Normal, 2=Hypokinesis, 3=Akinesis, 4=Dyskinesis, 5=Aneurysmal, 6=Hyperkinetic, X=Not Visualized (Blank)=Missing
[2016-06-09] MEDS: Nicotine 21 MG PATCH.TD24 TD SCH (16:52)
--- NOTE | 2016-06-10 00:27 | Electrocardiograph Report ---
[facility] Test Date: 2016-06-08 Pat Name: Christophe Loredo Department: 104 Room: 2N14 Gender: M Physician Assistant Surgery: OLIVERIO : 1960 Requested By: Alli Membreno Order Number: [id number] Reading MD: Cain Bhakta MD Measurements Intervals [place] Rate: 77 P: 46 AL: 170 QRS: 35 QRSD: 86 T: 50 QT: 343 QTc: 375 Interpretive Statements SINUS RHYTHM WITH SINUS ARRHYTHMIA OCCASIONAL VENTRICULAR PREMATURE COMPLEXES LOW QRS VOLTAGE IN EXTREMITY LEADS ANTERIOR MYOCARDIAL INFARCTION, ACUTE POSSIBLE INFERIOR MYOCARDIAL INFARCTION, OF INDETERMINATE AGE ACUTE ANTERIOR STEMI Electronically Signed On 06-10-16 00:26:17 EST by Cain Bhakta MD
[2016-06-10] MEDS: *HR* Ticagrelor 90 MG TABLET PO SCH (09:01)
[2016-06-10] MEDS: Lisinopril 20 MG TABLET PO SCH (09:01)
[2016-06-10] MEDS: Aspirin Enteric Coated 81 MG Tablet PO SCH (09:01)
[2016-06-10] MEDS: predniSONE 20 MG TABLET PO SCH (09:01)
[2016-06-10] MEDS: Pregabalin 75 MG CAPSULE PO SCH (09:04)
[2016-06-10] MEDS: Nicotine 21 MG PATCH.TD24 TD SCH (09:04)
[2016-06-10] MEDS: clonazePAM 1 MG TABLET PO SCH (09:04)
[2016-06-10] MEDS: (Aclidinium Bromide [Tudorza Pressair] 400 MCG) IH SCH (09:05)
[2016-06-10] MEDS: *HR* Heparin 5,000 UNIT/ML VIAL SQ SCH (09:05)
[2016-06-10] MEDS: (Roflumilast [Daliresp] 500 MCG) PO SCH (09:05)
--- NOTE | 2016-06-10 10:35 | Discharge Summary ---
<Michael Palmer - Last Filed: 06/10/16 11:41> Date of Encounter: 06/10/16 - Discharge Medications Prescriptions: Amlodipine [Norvasc] 5 mg PO DAILY #30 tablet Atorvastatin [Lipitor] 80 mg PO HS #30 tablet Carvedilol [Coreg] 12.5 mg PO BIDWM #60 tablet Lisinopril [Zestril] 40 mg PO DAILY #30 tablet Nicotine Patch [Nicoderm] 21 mg TD DAILY #30 patch.td24 Ticagrelor [Brilinta] 90 mg PO BID #60 tablet Home Medications: Aspirin [Lo-Dose Aspirin EC] 81 mg PO DAILY 11/15/15 [History] Butalbital/Aspirin/Caffeine [Fiorinal 50-325-40 mg Capsule] 1 cap PO Q4H PRN 10/25 [History] ClonazePAM [Klonopin] 1 mg PO BID PRN 11/15/15 [History] Isosorbide MONOnitrate (24 HR) [Imdur] 30 mg PO BID #0 11/15/15 [Rx] Nitroglycerin [Nitrostat] 0.4 mg SL Q5M PRN 11/15/15 [History] Oxycodone HCl/Acetaminophen [Percocet 10-325 mg Tablet] 1 tab PO Q6H PRN [History] Paroxetine [Paxil] 40 mg PO DAILY 11/15/15 [History] Pregabalin [Lyrica] 150 mg PO BID 11/15/15 [History] Roflumilast [Daliresp] 500 mcg PO DAILY 11/15/15 [History] Aclidinium [place] [Tudorza Pressair] 800 mcg IH BID 06/04/16 [History] Albuterol Sulfate [Ventolin Hfa] 2 puff IH Q4H PRN 06/04/16 [History] PredniSONE 40 mg PO DAILY #10 tablet 06/04/16 [Rx] Amlodipine [Norvasc] 5 mg PO DAILY #30 tablet 06/10/16 [Rx] Atorvastatin [Lipitor] 80 mg PO HS #30 tablet 06/10/16 [Rx] Carvedilol [Coreg] 12.5 mg PO BIDWM #60 tablet 06/10/16 [Rx] Lisinopril [Zestril] 40 mg PO DAILY #30 tablet 06/10/16 [Rx] Nicotine Patch [Nicoderm] 21 mg TD DAILY #30 patch.td24 06/10/16 [Rx] Ticagrelor [Brilinta] 90 mg PO BID #60 tablet 06/10/16 [Rx] Allergies/Adverse Reactions: Allergies acetaminophen [From Darvocet-N] Adverse Reaction (Verified 06/08/16 13:01) Nausea gabapentin [From Neurontin] Adverse Reaction (Verified 06/08/16 13:01) Nausea promethazine [From Phenergan] Adverse Reaction (Verified 06/10/16 07:00) Agitated propoxyphene [From Darvocet-N] Adverse Reaction (Verified 06/08/16 13:01) Nausea Procedures/tests Complete & Pending: Procedures Performed prior 72 hours Category Date Time Status ECG 12 lead ECG [ECG] Routine Y 06/08/16 14:26 Ordered ECG 12 lead ECG [ECG] Routine Y 06/09/16 07:00 Ordered ECG 12 lead ECG [ECG] Stat Y 06/08/16 14:26 Completed EV limited echocardiogram Routine Y 06/09/16 09:18 Completed Date of admission: 06/08/16 13:23 Primary care physician: Mariaa Paul CNP Consults: 06/08/16 14:26 Consult to Cardiac Rehabilitation-Phase1 [CONS] Routine Comment: Reason for Consult: AMI Call Completed: Yes Consult to Nurse Navigator [CONS] Routine Comment: - Patient Status Disposition: Home, Self-Care Condition: Good - Discharge Instructions Follow Up With: Mariaa Paul CNP [Primary Care Provider] - 06/14/16 8:00 am Georgia Goff MD [Partnered Physician] - Additional Instructions: RISK FACTORS: STOP SMOKING: If you smoke, STOP. Smoking or tobacco use significantly increases your risk of heart disease because nicotine causes the arteries to narrow or constrict. It also causes fats to stick to the artery. Your chances of having a heart attack are greatly increased if you continue to smoke. For more information, call the education line for smoking cessation 9-259-EDECXVL EAT A LOW FAT/CHOLESTEROL/SODIUM DIET: This diet may help reduce your chances of having a heart attack. LIFTING: Avoid lifting anything more than 10 pounds for 5-7 days Prior to straining, laughing, sneezing and/or coughing, apply manual pressure directly over insertion site. ACTIVITY: You may walk or climb stairs as tolerated You can resume sexual activity as tolerated In general, you are encouraged to engage in a minimum of 30 minutes or more of moderate intensity physical activity, such as brisk walking, daily or at least 3 -4 times weekly BATHING Do not submerge the site into water (bath tub, hot tub, swimming pool) for 1 week. This can be a source for infection into the blood stream. You may shower after 24 hours SITE CARE: After 24 hours, you may remove the dressing and leave the site open to air. Keep the site clean and dry. Clean gently and pat dry. You can expect bruising and tenderness that gradually resolve within a week or two. Return to work as instructed per your physician Resume driving as instructed per physician Keep all scheduled follow up appointments Resume medications as instructed IMPORTANT: If prescribed a Platelet Aggregation Inhibitor such as, Plavix, Brilinta or Effient: Duration of therapy is minimum one year These medications are often used in combination with Aspirin in prevention of future heart attacks Never discontinue unless consult with your Entry Level Project Coordinator STROKE (CVA) Risk factors for a stroke are: Age, cigarette smoking, diabetes, excessive alcohol consumption, family history, high blood pressure, overweight, physical inactivity, prior stroke, heart attack, diagnosis of carotid artery stenosis or other artery disease. Warning signs: Sudden numbness or weakness of the face, arm or leg; especially on one side of the body, sudden confusion, trouble speaking or understanding, sudden trouble seeing in one or both eyes, sudden trouble walking, dizziness, loss of balance or coordination, sudden severe headache with no cause. Call 911 or go to the Emergency Room. CONGESTIVE HEART FAILURE: If you have been diagnosed with Congestive Heart Failure (CHF) and your symptoms return, make an appointment with your physician Weigh yourself daily. Notify your physician if you have a weight gain of two or more pounds in one day or five or more pounds in one week. If you experience any difficulty breathing, please call 911 BLEEDING: Although the risk of bleeding is minimal, it can happen. If you have any bleeding from the site, apply firm pressure above the puncture site for 10-15 minutes. If the bleeding does not stop, continue manual pressure and call 911 Contact your physician if: You develop a fever greater than 101 degrees Fahrenheit Your site becomes reddened or has any drainage You have an increase in pain or burning at the site or if a large knot forms at the site. If you experience chest pain, shortness of breath, dizziness, or extreme tiredness, stop the activity and rest. Please notify your physicians office if you experience any of these symptoms and they are not relieved by rest please call 911! - Hospital Course Hospital course: Mr. Loredo is a 55 year old male - Time Spent with Patient Total time spent providing and/or coordinating discharge services: Physical Examination Vital Signs, Last 4 Hours Temp Pulse Resp BP Pulse Ox 06/10/16 11:00 98.2 F 76 16 118/83 95 06/10/16 10:46 16 99 06/10/16 09:48 68 - Attending Attestation I examined this patient and my medical decision-making was reviewed with the DIRECTOR REGULATORY COMPLIANCE/PA/Advanced Practice Nurse/Resident Physician. I agree with the documented findings, disposition and treatment plan as described except to the extent set forth below. 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 for details <Bhavna Markham - Last Filed: 06/10/16 13:14> Date of Encounter: 06/10/16 Time of Encounter: 10:45 - Discharge Diagnosis (1) ST elevation myocardial infarction (STEMI) Priority: Primary Status: Acute Qualifiers: Involved coronary artery: LAD coronary artery Qualified Code(s): I21.02 - ST elevation (STEMI) myocardial infarction involving left anterior descending coronary artery (2) Hypertension Priority: Secondary Status: Chronic Qualifiers: Hypertension type: essential hypertension Qualified Code(s): I10 - Essential (primary) hypertension (3) CAD (coronary artery disease) Priority: Primary Status: Chronic Qualifiers: Coronary Disease-Associated Artery/Lesion type: apache artery [place] vs. transplanted heart: apache heart Associated angina: with stable angina Qualified Code(s): I25.118 - Atherosclerotic heart disease of apache coronary artery with other forms of angina pectoris (4) Smoker Priority: Secondary Status: Chronic Procedures/tests Complete & Pending: Procedures Performed prior 72 hours Category Date Time Status ECG 12 lead ECG [ECG] Routine Y 06/08/16 14:26 Ordered ECG 12 lead ECG [ECG] Routine Y 06/09/16 07:00 Ordered ECG 12 lead ECG [ECG] Stat Y 06/08/16 14:26 Completed EV limited echocardiogram Routine Y 06/09/16 09:18 Completed Date of admission: 06/08/16 13:23 Primary care physician: Mariaa Paul CNP Consults: 06/08/16 14:26 Consult to Cardiac Rehabilitation-Phase1 [CONS] Routine Comment: Reason for Consult: AMI Call Completed: Yes Consult to Nurse Navigator [CONS] Routine Comment: Discharging clinician: Bhavna Markham Anticipated date of discharge: 06/10/16 - Patient Status Functional capacity at discharge: independent ambulation Overall status at discharge: patient is back to baseline - Diet and Activity Activity: resume usual activities as tolerated Diet: low fat, low cholesterol, low salt diet - Hospital Course Hospital course: Mr. Loredo is a 55 year old male who presented on 06/08/16 as STEMI; was emergently taken to the general laborer and is s/p successful PTCA/ANDREA to mLAD. He was transferred to ICU and kept overnight. Blood pressure was also noted to be uncontrolled and antihypertensives have been titrated to satisfactory readings. He stepped down to 2N yesterday. No issues with [facility] site. EF 45% per TTE. Labs, vital signs, and telemetry have been stable. He has been up and ambulating in room/hallways without symptoms. He is being prepped for discharge to home in stable condition. Post PCI guidelines emphasized including uninterrupted DAPT (brilinta + asa) therapy for at least 1 year. He was encouraged to stop smoking. Discussed medication changes. All questions and concerns were addressed, Mr. Loredo verbalized understanding of all information provided. He will follow-up in clinic within 5-7 days. Time spent discussing smoking cessation with patient: 3 to 10 minutes - Time Spent with Patient Total time spent providing and/or coordinating discharge services: Specific discharge activities: per post PCI guidelines--please provide written copy. No heavy lifting >5 pounds for 1 week. Avoid exertional/strenuouse activity until seen by Cardiogist. Stop smoking. Physical Examination Vital Signs, Last 4 Hours Temp Pulse Resp BP Pulse Ox 06/10/16 09:48 68 06/10/16 07:36 97.5 F L 75 16 116/77 99 General: Conversant, No Apparent Distress HEENT: Atraumatic, Normocephaly Cardiac: Reg Rate and Rhythm, Normal S1 and S2 Lungs: Normal Breath Sounds Neuro: Alert and responsive Abdomen: Soft Skin: No rashes noted on visualized skin Musculoskeletal: No Chest Wall Tenderness Extremities: No Edema, Normal Pulses Other: Right groin cath site: mild ecchymosis noted at site. +2 distal pulses bilaterally. - VTE Reasons for not Prescribing Prophylaxis: Not indicated-Anticoagulated or INR therapeutic
[2016-06-10 11:03] VITALS: BP 118/83
--- NOTE | 2016-06-10 11:17 | Electrocardiograph Report ---
[facility] Test Date: 2016-06-08 Pat Name: Christophe Loredo Department: 109 Room: 2N14 Gender: M Candy Supervisor: : 1960 Requested By: Georgia Goff Order Number: [id number] Reading MD: Todd Leon MD Measurements Intervals [place] Rate: 89 P: 66 MO: 175 QRS: 218 QRSD: 87 T: 58 QT: 332 QTc: 379 Interpretive Statements SINUS RHYTHM INDETERMINATE AXIS LOW QRS VOLTAGE IN EXTREMITY LEADS ANTERIOR MYOCARDIAL INFARCTION, OF INDETERMINATE AGE PROBABLE INFERIOR MYOCARDIAL INFARCTION, OF INDETERMINATE AGE Electronically Signed On 06-10-16 11:16:27 EST by Todd Leon MD
== END 2016-06-10 13:55 | disposition home or self-care (01) | DRG 174 ==
LOC: EMEROO 12:39 → ICNU 13:10 → 2NNU 06-09 11:28
PROVIDERS: ADMIT Internal Medicine Interventional Cardiology; ATTEND Internal Medicine Interventional Cardiology

== ENCOUNTER 2017-06-06 11:29 | Inpatient (IN) ==
[~2017-06-06 11:29] MED LIST: Adenosine 90 MG/30 ML MLS IV ONE
[2017-06-06] MEDS ORDERED: Nitroglycerin 0.4 MG TAB.SUBL SL PRN (12:02)
[2017-06-06] MEDS ORDERED: clonazePAM 1 MG TABLET PO PRN (12:02)
--- NOTE | 2017-06-06 12:11 | History & Physical Report ---
Date of Encounter: 06/06/17 Time of Encounter: 11:45 24 Hour HP Update - Instructions Instructions: If the History and Physical is less than 30 days old and was completed prior to A.M. admission and or procedure and has NOT been updated on calendar day of procedure please complete this update prior to performing procedure. - Update Patient reports changes in Medical Condition: No Changes in examination, assessment, or condition: No Changes in Medication: No Preop tests/diagnostics Reviewed: No Additions to current History and Physical: Direct admit from cardiology office today for chest pain and EKG changes. - Pre-Operative Checklist Home Medications Include Beta Js: Yes - Attending Attestation Patient directly admitted from cardiology office for c/o two weeks of chest pain. EKG taken in office today demonstrated recent anterolateral WA changes, likely from two weeks ago. He is currently pain free. C/o severe left sided crushing chest pain two weeks ago and intermittent pain since that time. H/o WA and PCI in 2013 and recurrent PCI to the LAD 05/2016, HTN, HLD, and tobacco use. Reports missing a few doses of brilinta. Planning for cardiac catheterization today. WIll check CBC, BMP, PT/INR, and troponin. Check CXR. Check TTE. Continue asa, brilinta, statin, and bb. He is currently pain free. See OV visit note by Dr. Georgia Goff completed today (06/06/17) for full H&P.
[2017-06-06] MEDS ORDERED: Verapamil 5 MG/2 ML VIAL ONE (12:19)
[2017-06-06] MEDS ORDERED: *HR* Heparin 10,000 UNIT/10 ML VIAL ONE (12:19)
[2017-06-06] MEDS ORDERED: 0.9 % Sodium Chloride 1,000 ML ONE ×2 (12:19→13:55)
[2017-06-06] MEDS ORDERED: Heparin 1,000 UNITS/500 mL 500 ML ONE (12:19)
[2017-06-06] MEDS ORDERED: Nitroglycerin 1,000 MCG/10 ML VIAL IV ONE (12:20)
[2017-06-06 13:23] LABS: Basophils % 0.6 %; Eosinophils # 0.2 K/mcL (0.0-0.6); Eosinophils % 2.4 %; Hematocrit 41.9 % (37.5-50.1); Hemoglobin 14.1 g/dL (12.9-16.9); INR 1.1; Immature Granulocytes % 0.5 % (0-4); Lymphocytes # 1.8 K/mcL (0.6-4.6); Lymphocytes % 28.6 %; Mean Corpuscular HGB Conc 33.7 g/dL (31.6-35.5); Mean Platelet Volume 10.7 fL (9.4-12.4); Monocytes # 0.5 K/mcL (0.0-1.3); Monocytes % 7.7 %; Neutrophils # 3.8 K/mcL (1.6-8.9); Platelet Count 198 K/mcL (140-400); Red Blood Count 4.87 M/mcL (4.19-5.50); Red Cell Distribution Width 12.6 % (11.5-14.5); Segmented Neutrophils % 60.2 %
[2017-06-06 13:34] LABS: BUN/Creatinine Ratio 11 (6-26); Blood Urea Nitrogen 10 mg/dL (6-20); Calcium 9.1 mg/dL (8.6-10.3); Carbon Dioxide 25 mEq/L (23-29); Chloride 106 mEq/L (98-107); Glucose 105 mg/dL (70-105); Osmolality,Calculated 281 (280-300); Potassium 4.1 mEq/L (3.5-5.1); Sodium 136 mEq/L (136-145); eGFR For African Americans > 60 (> 60); eGFR For Non-African Americans > 60 (> 60)
[2017-06-06] MEDS ORDERED: *HR* FentaNYL (PF) 100 MCG/2 ML VIAL ONE (13:51)
[2017-06-06] MEDS ORDERED: *HR* Midazolam HCl 2 MG/2 ML VIAL ONE ×2 (13:51→14:18)
--- NOTE | 2017-06-06 14:11 | Pre-Sedation Evaluation ---
Pre-sedation evaluation - Pre-sedation checklist Date of procedure: 06/06/17 Procedure: [facility] Recent Vitals: Last Vital Signs Temp 97.9 F 06/06/17 12:03 Pulse 68 06/06/17 12:03 Resp 15 06/06/17 12:03 BP 154/89 06/06/17 12:03 Pulse Ox 98 06/06/17 12:03 H&P (including ROS) documented in medical record: Yes Previous reaction to sedatives/anesthetics: No Dietary Status: unknown Dentition: dentures removed ASA Classification *see protocol: CLASS II-Mild systemic disease Plan of Care: Pt appropriate candidate for procedure/moderate/conscious sedation , Risks/benefits of procedure/sedation discussed w/ patient/family
[2017-06-06] MEDS ORDERED: *HR* Ticagrelor 90 MG TABLET ONE (15:23)
[2017-06-06] MEDS ORDERED: Ondansetron 8 MG in 0.9 % Sodium Chloride 50 ML IVPB ONE (15:38)
[2017-06-06] MEDS ORDERED: Acetaminophen 325 MG TABLET PO PRN (15:38)
--- NOTE | 2017-06-06 16:47 | Invasive Diagnostic Lab Proc ---
Name: Christophe Loredo Date of Study: 06/06/2017 Date: 1960 Ht: 68.1in Medical Record#: [id number] Age: 56 Wt: 182.98lb Gender: Male BSA: 1.97 Order #: [id number] BMI: 27.73 Physicians Procedure Physician: Todd Leon MD, FACC Referring MD: Referring MD: Staff Name Position Time In Ya Austin RN Monitor 01:52 PM Teri Santos RN Label Cutter 01:52 PM Aneesh Mckee RT (R) Scrub 01:52 PM Indications Indication Unstable Angina Procedures Performed Procedure L HRT ARTERY/VENTRICLE ANGIO IV Doppler BLD Flow 1st Vessel PRQ CARD ANDREA STENT W/ANGIO 1 VSL Pre-Procedure Checklist Informed consent is complete signed and on chart. H&P is on chart. ID band is on and ID verified with patient. Patient NPO for procedure The procedure was described for the patient and questions were answered. Blood Pressure: 128/72 ECG is on chart. Rhythm: NSR Plan of Care Patient will tolerate the procedure without complications. Adequate level of comfort will be maintained. Hemodynamics will remain stable Patient will recover from procedure without complications. Respiratory function will be maintained. Cardiac rhythm will remain stable. Patient temperature will be maintained. Patient and/or family have verbalized understanding of the procedure. Patient Education Chief Complaint/Reason for Test: Cardiac Cath Developmental Category: Adult (18-64 years) Developmentally Appropriate for Age: Yes Learning Barriers: None Education Needs: Procedure Education Method: Verbal Information Taught: Cardiac Cath Educational Evaluation: Able to repeat information Intravenous Access Time IV Size Location DC'd Fluid/Drip Rate Units RN 12:35 PM 20g 1 1/" Patent On Arrival Rt Antecubital 0.9NaCl 25 ml/hr Ya Austin RN Allergies ibuprofen propoxyphene gabapentin darvocet acetaminophen promethazine Vital Signs Time BP (mmHg) HR (bpm) O2 Sat. RR (bpm) LOC 12:35 PM 154 / 89 68 98 % 15 5 = Fully awake and oriented or at pre-proc level 01:53 PM / % 5 = Fully awake and oriented or at pre-proc level 01:53 PM / % 5 = Fully awake and oriented or at pre-proc level 02:08 PM / % 4 = Oriented but drowsy 02:24 PM / % 4 = Oriented but drowsy 02:39 PM / % 4 = Oriented but drowsy 02:54 PM / % 4 = Oriented but drowsy 02:34 PM 101 / 69 83 97 % 17 02:39 PM 96 / 53 75 98 % 15 02:44 PM 95 / 61 78 99 % 13 02:49 PM 107 / 75 83 97 % 15 02:54 PM 104 / 67 81 98 % 34 02:59 PM 111 / 67 95 100 % 21 03:04 PM 101 / 72 81 95 % 29 03:09 PM 116 / 78 105 98 % 26 03:14 PM 115 / 75 72 100 % 9 03:19 PM 115 / 77 70 100 % 21 02:04 PM 128 / 72 67 100 % 18 02:09 PM 103 / 71 80 97 % 20 02:14 PM 106 / 62 75 100 % 13 02:19 PM 106 / 70 85 97 % 20 02:24 PM 103 / 61 85 97 % 12 02:29 PM 108 / 64 84 98 % 16 03:38 PM 124 / 79 66 100 % 18 5 = Fully awake and oriented or at pre-proc level 03:55 PM 119 / 62 60 99 % 18 5 = Fully awake and oriented or at pre-proc level 06:15 AM 107 / 55 68 99 % 18 5 = Fully awake and oriented or at pre-proc level Procedural Medications Time Medication Dose Units Method Given By 02:05 PM Versed 2 mg Intravenous Teri Santos RN 02:05 PM Fentanyl 50 mcg Intravenous Teri Santos RN 02:13 PM Lidocaine 2% 0.5 ml Subcutaneous Todd Leon MD, FACC 02:16 PM Heparin 4000 units Nitroglycerin 200 mcg Verapamil 2.5 mg Intraarterial Todd Leon MD, FACC 02:19 PM Versed 1 mg Intravenous Teri Santos RN 02:19 PM Fentanyl 25 mcg Intravenous Teri Santos RN 02:32 PM Versed 1 mg Intravenous Teri Santos RN 02:32 PM Fentanyl 25 mcg Intravenous Teri Santos RN 02:38 PM Lidocaine 2% 18 ml Subcutaneous Todd Leon MD, FACC 02:51 PM Nitroglycerin 200 mcg Intracoronary Todd Leon MD 02:54 PM Adenosine 697 ml/hr Intravenous Georges Degroot RN 03:22 PM Brilinta 90 mg Orally Buck Degroot RN ASA Classification: CLASS II- Mild systemic disease (i.e. well-controlled diabetes, hypertension, asthma, cigarette smoking) Lizz Score Preprocedure Postprocedure Activity 2- Moves 4 extremities sustained head lift Activity 2- Moves 4 extremities sustained head lift Circulation 2- SBP +/= 20 points of pre-anesthetic level Circulation 2- SBP +/= 20 points of pre-anesthetic level Consciousness 2- Awake and alert oriented x 3 Consciousness 2- Awake and alert oriented x 3 O2 Saturation 2- Able to maintain O2 satruation of 92% on room air O2 Saturation 2- Able to maintain O2 satruation of 92% on room air Respiratory 2- Able to deep breathe and cough well Respiratory 2- Able to deep breathe and cough well Total Score 10 Total Score 10 Contrast Agent: Isovue Diagnostic Contrast: 138 ml Total Contrast: 138 ml Fluoro Dose: 965 mGy Activated Clotting Time Time Seconds to Clot 02:53 PM 301 03:23 PM 221 Procedure Log Time Note Enter By 01:52 PM Pt arrived to laborer/grade check 2 at 13:52 [facility] 01:52 PM Ya Austin RN Position: Monitor Time in: 13:52 mmamy 01:52 PM Teri Santos RN Position: Label Cutter Time in: 13:52 mm 01:52 PM Aneesh Mckee RT (R) Position: Scrub Time in: 13:52 mmamy 01:53 PM Patient charges- Angio tray pack, Navilyst 3mm J, Pulse Oximetry and ACIST tubing and transducer tsoummers 01:53 PM Case Delayed No oummers :53 PM Hair removed from procedure site in procedure lab using clippers. Right wrist & Right groin prepped with Chloraprep by Aneesh Mckee RT (R), safety strap applied then patient was draped. Skin intact. oumm 01:53 PM Physican paged/called 13:53. tsoummers 01:53 PM Physican responded and notified patient is ready 13:53 tsoummers 01:53 PM Physician arrived 13:53 tsoummers :53 PM Meet and greet completed mm:53 PM Sign in performed according to hospital policy. [email or web address] 01:53 PM Procedure start 13:53 tsoummers :53 PM Time: 13:53 Patient comfortable and pain free: Yes oummers 01:53 PM Time: 13:53LOC: 5 = Fully awake and oriented or at pre-proc level tsoummers 01:53 PM CathStat 01:53 PM Case Start 01:56 PM Clinical Presentation: Unstable angina tsoummers 02:01 PM Vitals capture started with the following parameters, Patient=Adult, Interval=5 min, Initial Vprkjxab=494 mmHg, Deflation Rate=5 mmHg, Cuff placed on Right Arm 02:04 PM Vitals capture started with the following parameters, Patient=Adult, Interval=5 min, Initial Cqwuyuay=853 mmHg, Deflation Rate=5 mmHg, Cuff placed on Right Arm 02:04 PM HR=67 bpm, JTLS=835/72 mmhg, VbQ6=176.0 %, Resp=18 B/min 02:05 PM Time: 14:05 Versed 2 mg Intravenous Given by Teri Santos RN 02:05 PM Time: 14:05 Fentanyl 50 mcg Intravenous Given by Teri Santos RN 02:07 PM Recorded ECG: HR=68 Condition=Condition 1 02:08 PM Time: 13:53LOC: 5 = Fully awake and oriented or at pre-proc [facility] PM Time: 13:53 Patient comfortable and pain free: Yes [facility] 02:09 PM HR=80 bpm, XXIJ=508/71 mmhg, SpO2=97.0 %, Resp=20 B/min 02:10 PM Pressure channel 1 zeroed. 02:13 PM Time out performed according to hospital policy 02:14 PM Time: 14:13 0.5 ml Lidocaine 2% to right radial Subcutaneous Given by Todd Leon MD, FACC oumm 02:14 PM Access obtained by percutaneous puncture. 6Fr 10cm Terumo Glidesheath sheath placed in right Femoral artery. [id number] [facility] 02:14 PM HR=75 bpm, DCHF=537/62 mmhg, KaY6=428.0 %, Resp=13 B/min, Comment=NSR 02:15 PM Time: 14:15 Patient given 4,000 units Heparin, 200 mcg Nitroglycerin, and 2.5 mg Verapamil Intraarterial by Todd Leon MD, FACC. This is given to reduce risk of vessel spasm and thrombosis. tsoummers 02:15 PM 0.035 260cm Navilyst 3mmJ wire [id number] 02:15 PM 5Fr TIG catheter inserted over the wire [facility] 02:16 PM wire removed. 02:17 PM RCA angiography performed in multiple views. 02:18 PM Recorded Pressure: Ao, HR=84, Condition=Condition 1 (Aorta) Ao 60/29/50 02:18 PM LCA angiography performed in multiple views. 02:18 PM Recorded Pressure: Ao, HR=88, Condition=Condition 1 (Aorta) Ao 101/77/89 02:19 PM Time: 14:19 Versed 1 mg Intravenous Given by Teri Santos RN [email or web address] 02:19 PM Time: 14:19 Fentanyl 25 mcg Intravenous Given by Teri Santos RN kaleighamy 02:19 PM HR=85 bpm, BGNI=000/70 mmhg, SpO2=97.0 %, Resp=20 B/min, Comment=NSR 02:20 PM ASA Class CLASS II- Mild systemic disease (i.e. well-controlled diabetes, hypertension, asthma, cigarette smoking) 02:21 PM Lesion found in Proximal RCA. Pre Stenosis: 70 Pre JANA Flow: 3: Complete and Brisk Flow/Perfusion : PM Catheter removed : PM Coronary Dominance: Left 02:22 PM Right Coronary, Right Posterior Descending Arteries with Right Posterolateral and Acute Marginal branches with 70 % stenosis. If graft is supplying this area, 0 % stenosis :23 PM Inflation device was opened. :24 PM 6Fr EBU 3.0 Medtronic guide catheter was used to cannulate the PCI vessel successfully. reused? No mm:24 PM Time: 14:09 Patient comfortable and pain free: Yes :24 PM Time: 14:08LOC: 4 = Oriented but drowsy :24 PM HR=85 bpm, CGWX=375/61 mmhg, SpO2=97.0 %, Resp=12 B/min, Comment=NSR 02:25 PM Lesion found in Mid Circumflex. Pre Stenosis: 40 Pre JANA Flow: 3: Complete and Brisk Flow/Perfusion tsoummers 02:28 PM Guide catheter removed intact. mmers 02:29 PM HR=84 bpm, ZNVO=095/64 mmhg, SpO2=98.0 %, Resp=16 B/min, Comment=NSR 02:30 PM 6Fr RBL 3.5 Convey guide catheter was used to cannulate the PCI vessel successfully. reused? No oumm 02:32 PM Time: 14:32 Versed 1 mg Intravenous Given by Teri Santos RN [email or web address] 02:32 PM Time: 14:32 Fentanyl 25 mcg Intravenous Given by Teri Santos RN [email or web address] 02:34 PM Guide catheter removed intact. mm 02:34 PM 6Fr JL4 Runway guide catheter was used to cannulate the PCI vessel successfully. reused? No mm 02:34 PM HR=83 bpm, DMUT=111/69 mmhg, SpO2=97.0 %, Resp=17 B/min, Comment=NSR 02:36 PM Guide catheter removed intact. mm 02:38 PM Time: 14:38 18 ml Lidocaine 2% to right groin Subcutaneous Given by Todd Leon MD, [facility] oumm 02:39 PM Time: 14:24LOC: 4 = Oriented but drowsy oumm 02:39 PM Time: 14:24 Patient comfortable and pain free: Yes mm 02:39 PM HR=75 bpm, NIBP=96/53 mmhg, SpO2=98.0 %, Resp=15 B/min, Comment=NSR 02:39 PM Access obtained by percutaneous puncture. 6Fr 10cm Terumo [place] sheath placed in right Femoral artery. [id number] mm 02:40 PM EBU 3.0 reinserted. mmers 02:42 PM Recorded Pressure: Ao, HR=77, Condition=Condition 1 (Aorta) Ao 99/58/76 02:43 PM LCA angiography performed in multiple views. mm 02:44 PM HR=78 bpm, NIBP=95/61 mmhg, SpO2=99.0 %, Resp=13 B/min, Comment=NSR 02:47 PM .014 [place] 190cm guide wire across target lesion- successful. reused? No mmers 02:49 PM HR=83 bpm, ECPM=296/75 mmhg, SpO2=97.0 %, Resp=15 B/min, Comment=NSR 02:49 PM ACT running. 02:50 PM Preparing for FFR. 02:52 PM Time: 14:51 Nitroglycerin 200 mcg Intracoronary Given by Todd Leon MD 02:53 PM At 14:53 the ACT was 301 seconds. 02:54 PM Asist FFR Catheter advanced to target lesion. 02:54 PM Time: 14:39LOC: 4 = Oriented but drowsy 02:54 PM HR=81 bpm, EMCK=496/67 mmhg, SpO2=98.0 %, Resp=34 B/min, Comment=NSR 02:54 PM Time: 14:39 Patient comfortable and pain free: Yes 02:54 PM Time: 14:54 Adenosine 697 ml/hr administered Intravenous by Georges Degroot RN 02:55 PM Adenosine running for 2 minutes. 02:56 PM FFR Measurement: 0.87 in the 1st Diagonal. mm 02:57 PM Adenosine stopped. mm 02:57 PM Recorded Pressure: Ao, HR=95, Condition=Condition 1 (Aorta) Ao 103/75/89 02:58 PM Adenosine restarted for 2 minutes. mm 02:59 PM HR=95 bpm, JXOX=045/67 mmhg, HyW6=632.0 %, Resp=21 B/min, Comment=NSR 03:00 PM FFR Measurement: 0.79 distal LAD. mm 03:01 PM FFR Measurement: 0.92 mid LAD. mm 03:01 PM Adenosine stopped. mm 03:02 PM Flow Wire/Catheter removed intact 03:04 PM Lesion found in 1st Marginal. Pre Stenosis: 80 Pre JANA Flow: mm 03:04 PM Circumflex, Obtuse Marginal, Left Posterior Descending, and Left Posterolateral Coronary Arteries with 80 % stenosis. If graft is supplying this area, 0 % stenosis tsmm 03:04 PM HR=81 bpm, VYGF=852/72 mmhg, SpO2=95.0 %, Resp=29 B/min, Comment=NSR 03:04 PM Lesion found in Mid LAD. Pre Stenosis: 50 Pre JANA Flow: 3: Complete and Brisk Flow/Perfusion tsoummers 03:04 PM Lesion found in Mid LAD. Pre Stenosis: 65 Pre JANA Flow: 3: Complete and Brisk Flow/Perfusion tsoummers 03:05 PM Lesion found in Distal LAD. Pre Stenosis: 30 Pre JANA Flow: 3: Complete and Brisk Flow/Perfusion tsoummers 03:05 PM Mid/Distal Left Anterior Descending Coronary Artery and diagonal branches with 65% stenosis. If graft is supplying this area, 0 % stenosis tsoummers 03:05 PM Recorded Pressure: Ao, HR=69, Condition=Condition 1 (Aorta) Ao 95/63/79 03:06 PM 2.25mm x 12mm Synergy drug-eluting stent across target lesion- successful Lot #[id number] tsoummers 03:06 PM Stent deployed @ 16 silas for 24 seconds tsoummers 03:08 PM Stent delivery system removed intact. tsoummers 03:08 PM Preparing to FFR post stent deployment. tsoummers 03:09 PM FFR wire reinserted. tsoummers 03:09 PM Adenosine running for 2 minutes. tsoummers 03:09 PM HM=242 bpm, HPOT=665/78 mmhg, SpO2=98.0 %, Resp=26 B/min, Comment=NSR 03:09 PM Time: 14:54LOC: 4 = Oriented but drowsy tsoummers 03:09 PM Time: 14:54 Patient comfortable and pain free: Yes tsoummers 03:10 PM Recorded Pressure: Ao, HR=95, Condition=Condition 1 (Aorta) Ao 100/62/81 03:11 PM Adenosine off. tsoummers 03:11 PM FFR wire and guidewire removed, intact. tsoummers 03:11 PM J-wire reinserted. tsoummers 03:11 PM Guide catheter removed, intact. tsoummers 03:12 PM Bolus angiogram of right Femoral complete: 4 ml/sec for a total of 7 mls tsoummers 03:12 PM Did you address JANA flow and Dominance? Yes tsoummers 03:14 PM HR=72 bpm, QFWK=585/75 mmhg, EgM4=196.0 %, Resp=9 B/min, Comment=NSR 03:15 PM 5Fr Pigtail catheter inserted over the wire DNC tsoummers 03:16 PM Catheter selectively placed in left ventricle tsoummers 03:16 PM Wire removed, intact. tsoummers 03:16 PM Recorded Pressure: LV, HR=28, Condition=Condition 1 (Left Ventricle) LV 128/6/47 03:17 PM Recorded Pressure: LV, Ao, HR=65, Condition=Condition 1 (Left Ventricle) LV 120/10/36, (Aorta) Ao 134/66/93 03:18 PM Bolus angiogram of left Ventricle complete: 10 ml/sec for a total of 20 mls tsoummers 03:18 PM Wire and catheter removed, intact. tsoummers 03:19 PM HR=70 bpm, PFBM=151/77 mmhg, LfE4=618.0 %, Resp=21 B/min, Comment=NSR 03:20 PM Sign out completed: Radiation Dose 965.02 mGy Fluoro Time: 14.5 Isovue 370 - 200ml contrast 138 ml given by Todd Leon MD, [facility]. Complications: NoneCardiac Rehab Consult needed: YesConfirmed administered medications: Yes tsoummers 03:20 PM Isovue 370 - 500ml,1 Bottle(s) used. tsoummers 03:20 PM Right femoral Sheath left in place to be pulled on floor/holding areaV+Pad tsoummers 03:20 PM Estimated Blood Loss: less than 20cc tsoummers 03:22 PM Time: 15:22 Brilinta 90 mg Orally Given by Georges Degroot RN tsoummers 03:23 PM Post ECG NSR tsoummers 03:23 PM Post Blood Pressure 115/77 tsoummers 03:23 PM At 15:23 the ACT was 221 seconds. tsoummers 03:25 PM Vitals capture stopped. 03:25 PM Family placed in consult room. tsoummers 03:25 PM Plavix, Effient or Brilinta given Yes tsoummers 03:25 PM 15:25 Post Pulses Bilateral DP & PT 2+ tsoummers 03:25 PM 15:25 Post Pulses Bilateral radial 2+ tsoummers 03:25 PM Information taught Cardiac Cath, PCI, and Vasc Band tsoummers 03:25 PM Education needs Procedure, Plan of Care, and Responsibilities of Patient in Care [facility] 03:25 PM Learning barriers :None [facility] 03:25 PM Education Methods Verbal [facility] 03:25 PM Education evaluation Able to repeat information [facility] 03:26 PM Site status No bleeding/hematoma - Rt Wrist as reported by Aneesh Mckee RT (R) at 15:25 [facility] 03:26 PM Site status No bleeding/hematoma - Rt Groin as reported by Aneesh Mckee RT (R) at 15:26 [facility] 03:26 PM 11 ml air in Vasc Band. [facility] 03:26 PM Delay to floor waiting for 2N bed to be clean [facility] 03:30 PM Report given to Nikolay CROWDER Pt taken to Holding room Room #3. 15:28 [facility] 03:30 PM Patient out of room: 15:30 [facility] 03:31 PM Lesion found in 1st Diagonal. Pre Stenosis: 70 Pre JANA Flow: [facility] 03:31 PM Mid/Distal Left Anterior Descending Coronary Artery and diagonal branches with 70% stenosis. If graft is supplying this area, 0 % stenosis [facility] 04:24 PM Delay to floor Bed availability kwitte 04:24 PM Complications: None kwitte 04:24 PM Report given to Lori CROWDER Pt taken to Holding room Room #[id number]. 16:24 kwitte 04:24 PM Patient out of room: 16:24 kwitte Complications Complication None None Hemodynamics Pressures Site Systolic/A Wave Diastolic/V Wave Mean AO 60 29 50 AO 101 77 89 AO 99 58 76 AO 103 75 89 AO 95 63 79 AO 100 62 81 LV 128 6 47 LV 120 10 36 AO 134 66 93 Post Procedure Information Blood Pressure: 115/77 mmHg Rhythm: NSR Post procedural instructions were given Closure Device Time Device Success/Fail 06/06/2017 3:30:00 PM Mechanical Compression Successful Site Checks Time Location Status Staff Sheath In? Note 03:25 PM Rt Wrist No bleeding/hematoma Aneesh Mckee RT (R) 03:26 PM Rt Groin No bleeding/hematoma Aneesh Mckee RT (R) 03:38 PM Rt Groin No bleeding/ No Hematoma Nikolay Rod RN Yes 03:38 PM Rt Wrist No bleeding/ No Hematoma Nikolay Rod RN Vasc band in place. 03:55 PM Rt Wrist No bleeding/ No Hematoma Nikolay Rod RN 03:55 PM Rt Groin No bleeding/ No Hematoma Nikolay Rod RN Yes 04:15 PM Rt Wrist No bleeding/ No Hematoma Nikolay Rod RN VAsc band in place 06:15 AM Rt Groin No bleeding/ No Hematoma Nikolay Rod RN Pulses Time Site Pre-Procedure Post-Procedure Note 06/06/2017 12:35:00 PM Bilateral radial 2+ 06/06/2017 12:35:00 PM Bilateral DP & PT 2+ 3:25:00 PM Bilateral DP & PT 2+ 3:25:00 PM Bilateral radial 2+ 06/06/2017 3:55:00 PM Bilateral DP & PT 2+ Updated by Nikolay Rod RN on 06/06/2017 4:41:49 PM Nikolay Rod RN electronically signed on 06/06/2017 4:42:21 PM with status of Final
[2017-06-06] MEDS ORDERED: *HR* Atropine Sulfate 1 MG/10 ML SYRINGE ONE (16:58)
[2017-06-06] MEDS: *HR* Heparin 5,000 UNIT/ML VIAL SQ SCH (18:00)
[2017-06-06] MEDS ORDERED: Perflutren Lipid Microsphere 1.3 ML in 0.9 % Sodium Chloride 8.7 ML IVP ONE (18:18)
[2017-06-06] MEDS: Pregabalin 75 MG CAPSULE PO SCH (20:40)
[2017-06-06] MEDS: ACLIDINIUM BROMIDE IH SCH (20:41)
[2017-06-06] MEDS: Isosorbide MONOnitrate (24 HR) 30 MG TAB.ER.24H PO SCH (20:41)
[2017-06-06] MEDS: *HR* Ticagrelor 90 MG TABLET PO SCH (20:41)
[2017-06-06] MEDS: *HR* OxyCODONE/APAP 10/325 TABLET PO PRN (20:46)
[2017-06-07] MEDS: *HR* Heparin 5,000 UNIT/ML VIAL SQ SCH (05:36)
[2017-06-07 07:23] VITALS: BP 119/74
[2017-06-07] MEDS: *HR* Ticagrelor 90 MG TABLET PO SCH (08:35)
[2017-06-07] MEDS: Pregabalin 75 MG CAPSULE PO SCH (08:35)
[2017-06-07] MEDS: Isosorbide MONOnitrate (24 HR) 30 MG TAB.ER.24H PO SCH (08:35)
[2017-06-07] MEDS: ACLIDINIUM BROMIDE IH SCH (08:36)
[2017-06-07] MEDS: *HR* OxyCODONE/APAP 10/325 TABLET PO PRN (08:43)
[2017-06-07] MEDS ORDERED: Aspirin Enteric Coated 81 MG Tablet PO SCH (09:00)
[2017-06-07] MEDS ORDERED: amLODIPine 5 MG TABLET PO SCH (09:00)
[2017-06-07] MEDS ORDERED: (Roflumilast [Daliresp] 500 MCG) PO SCH (09:00)
--- NOTE | 2017-06-07 09:50 | Discharge Summary ---
Date of Encounter: 06/07/17 Time of Encounter: 08:00 - Discharge Diagnosis (1) Unstable angina Priority: Primary Status: Acute Comments: s/p PCI to mLAD (2) Smoker Priority: Secondary Status: Chronic (3) CAD (coronary artery disease) Priority: Secondary Status: Chronic Qualifiers: Coronary Disease-Associated Artery/Lesion type: [place] artery [place] vs. transplanted heart: [place] heart Associated angina: without angina Qualified Code(s): I25.10 - Atherosclerotic heart disease of [place] coronary artery without angina pectoris - Discharge Medications Prescriptions: Metoprolol Succinate 25 mg PO DAILY #30 tab.er.24h Home Medications: Aspirin [Lo-Dose Aspirin EC] 81 mg PO DAILY 11/15/15 [History] Isosorbide MONOnitrate (24 HR) [Imdur] 30 mg PO BID #0 11/15/15 [Rx] Nitroglycerin [Nitrostat] 0.4 mg SL Q5M PRN 11/15/15 [History] Oxycodone HCl/Acetaminophen [Percocet 10-325 mg Tablet] 1 tab PO Q6H PRN [History] Paroxetine [Paxil] 40 mg PO DAILY 11/15/15 [History] Pregabalin [Lyrica] 150 mg PO BID 11/15/15 [History] Roflumilast [Daliresp] 500 mcg PO DAILY 11/15/15 [History] clonazePAM [Klonopin] 1 mg PO BID PRN 11/15/15 [History] Aclidinium [place] [Tudorza Pressair] 800 mcg IH BID 06/04/16 [History] Albuterol Sulfate [Ventolin Hfa] 2 puff IH Q4H PRN 06/04/16 [History] Atorvastatin [Lipitor] 80 mg PO HS #30 tablet 06/10/16 [Rx] Lisinopril [Zestril] 40 mg PO DAILY #30 tablet 06/10/16 [Rx] Ticagrelor [Brilinta] 90 mg PO BID #60 tablet 06/10/16 [Rx] amLODIPine [Norvasc] 5 mg PO DAILY #30 tablet 06/10/16 [Rx] Methocarbamol [Robaxin-750] 750 mg PO Q6H PRN #20 tablet 07/10/16 [Rx] Montelukast [Singulair] 10 mg PO DAILY 07/10/16 [History] Ondansetron ODT [Zofran ODT] 4 mg SL Q6HR #20 tab.rapdis 08/09/16 [Rx] Metoprolol Succinate 25 mg PO DAILY #30 tab.er.24h 06/07/17 [Rx] Allergies/Adverse Reactions: 3 Allergy/AdvReac Type Severity Reaction Status Date / Time ibuprofen [From Motrin] Allergy Nausea Verified 07/10/16 19:40 acetaminophen AdvReac Nausea Verified 06/08/16 13:01 [From Darvocet-N] gabapentin [From Neurontin] AdvReac Nausea Verified 06/08/16 13:01 propoxyphene AdvReac Nausea Verified 06/08/16 13:01 [From Darvocet-N] Procedures/tests Complete & Pending: Procedures Performed prior 72 hours Category Date Time Status CL Cardiac Catheterization [CL] Routine Neck Pinner 06/06/17 11:59 Ordered ECG 12 lead ECG [ECG] AM 0600 Y 06/07/17 06:00 Ordered EV echocardiogram w enhance Routine Y 06/06/17 12:08 Completed Date of admission: 06/06/17 12:55 Primary care physician: Mariaa Paul CNP Consults: 06/06/17 15:48 Consult to Cardiac Rehabilitation-Phase1 [CONS] Routine Comment: Reason for Consult: post op diagnostic cath Call Completed: Yes Discharging clinician: Bhavna Markham Anticipated date of discharge: 06/07/17 - Patient Status Disposition: Home, Self-Care Condition: Good Functional capacity at discharge: independent ambulation Overall status at discharge: patient is progressing back to baseline - Discharge Instructions Follow Up With: Mariaa Paul CNP [Primary Care Provider] - (Office closes at 100PM on Fridays) Todd Leon MD [Partnered Physician] - (office will call patient at home with follow up appointment) Additional Instructions: RISK FACTORS: STOP SMOKING: If you smoke, STOP. Smoking or tobacco use significantly increases your risk of heart disease because nicotine causes the arteries to narrow or constrict. It also causes fats to stick to the artery. Your chances of having a heart attack are greatly increased if you continue to smoke. For more information, call the education line for smoking cessation 1-322-COIYLLX EAT A LOW FAT/CHOLESTEROL/SODIUM DIET: This diet may help reduce your chances of having a heart attack. LIFTING: Avoid lifting anything more than 10 pounds for 5-7 days Prior to straining, laughing, sneezing and/or coughing, apply manual pressure directly over insertion site. ACTIVITY: You may walk or climb stairs as tolerated You can resume sexual activity as tolerated In general, you are encouraged to engage in a minimum of 30 minutes or more of moderate intensity physical activity, such as brisk walking, daily or at least 3 -4 times weekly BATHING Do not submerge the site into water (bath tub, hot tub, swimming pool) for 1 week. This can be a source for infection into the blood stream. You may shower after 24 hours SITE CARE: After 24 hours, you may remove the dressing and leave the site open to air. Keep the site clean and dry. Clean gently and pat dry. You can expect bruising and tenderness that gradually resolve within a week or two. Return to work as instructed per your physician Resume driving as instructed per physician Keep all scheduled follow up appointments Resume medications as instructed IMPORTANT: If prescribed a Platelet Aggregation Inhibitor such as, Plavix, Brilinta or Effient: Duration of therapy is minimum one year These medications are often used in combination with Aspirin in prevention of future heart attacks Never discontinue unless consult with your Rear Admiral STROKE (CVA) Risk factors for a stroke are: Age, cigarette smoking, diabetes, excessive alcohol consumption, family history, high blood pressure, overweight, physical inactivity, prior stroke, heart attack, diagnosis of carotid artery stenosis or other artery disease. Warning signs: Sudden numbness or weakness of the face, arm or leg; especially on one side of the body, sudden confusion, trouble speaking or understanding, sudden trouble seeing in one or both eyes, sudden trouble walking, dizziness, loss of balance or coordination, sudden severe headache with no cause. Call 911 or go to the Emergency Room. CONGESTIVE HEART FAILURE: If you have been diagnosed with Congestive Heart Failure (CHF) and your symptoms return, make an appointment with your physician Weigh yourself daily. Notify your physician if you have a weight gain of two or more pounds in one day or five or more pounds in one week. If you experience any difficulty breathing, please call 911 BLEEDING: Although the risk of bleeding is minimal, it can happen. If you have any bleeding from the site, apply firm pressure above the puncture site for 10-15 minutes. If the bleeding does not stop, continue manual pressure and call 911 Contact your physician if: You develop a fever greater than 101 degrees Fahrenheit Your site becomes reddened or has any drainage You have an increase in pain or burning at the site or if a large knot forms at the site. If you experience chest pain, shortness of breath, dizziness, or extreme tiredness, stop the activity and rest. Please notify your physicians office if you experience any of these symptoms and they are not relieved by rest please call 911! - Diet and Activity Activity: increase activity as tolerated (per post PCI d/c instructions), return to work once cleared by your PCP/specialist Diet: low fat, low cholesterol, low salt diet - Hospital Course Hospital course: Mr. Loredo is a 56 year old male who was admitted yesterday after being seen in the Cardiology office with concerns of chest pain and ECG changes. It was suspected that patient had an DE several weeks ago based on symptoms. [facility] completed on06/06/17 and is s/p ANDREA to mLAD. After discussion with Dr. Leon, it was recommended that patient remain on Brilinta. Long discussion this morning regarding importance of uninterrupted DAPT (asa + brilinta), patient verbalized understanding. Also reviewed with Dr. Thomas who recommended patient to remain on brilinta. Labs, vitals, and telemetry stable overnight. Patient has been up and ambulating in room without symptoms. Toprol XL added to medications given reduced LVEF, he will continue ACEi, appears euvolemic upon exam. Post PCI discharge instructions discussed. No issues with cath site. Mr. Loredo is being prepped for discharge to home this AM in stable condition. All questions and concerns were addressed prior to discharge. Will send Rx for BP cuff as requested. Time spent discussing smoking cessation with patient: 3 to 10 minutes - Time Spent with Patient Total time spent providing and/or coordinating discharge services: Specific discharge activities: per post PCI discharge instructions. Please provide written copy. Physical Examination Vital Signs, Last 4 Hours Temp Pulse Resp BP Pulse Ox 06/07/17 08:35 97.8 F 59 18 119/74 97 06/07/17 07:21 97.8 F 59 18 119/74 97 General: Conversant, No Apparent Distress HEENT: Atraumatic, Normocephaly Cardiac: Reg Rate and Rhythm, Normal S1 and S2 Lungs: Normal Breath Sounds Neuro: Alert and responsive Abdomen: Soft Skin: No rashes noted on visualized skin Musculoskeletal: No Chest Wall Tenderness Extremities: No Edema, Normal Pulses Other: right groin cath site: C/D/I, no hematoma oozing or bleeding. +2 DP/PT pulses bilaterally.
--- NOTE | 2017-06-10 16:25 | Electrocardiograph Report ---
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
--- NOTE | 2017-06-11 13:46 | Invasive Diagnostic Lab Proc ---
Name: Christophe Loredo Date of Study: 06/06/2017 Date: 1960 Ht: 68.1in Medical Record#: [id number] Age: 56 Wt: 182.98lb Gender: Male BSA: 1.97 Order #: [id number] BMI: 27.73 Physicians Procedure Physician: Todd Leon MD, FACC Referring MD: Mariaa Paul CNP Referring MD: Georgia Goff MD, [facility] Staff Name Position Time In Ya Austin RN Monitor 01:52 PM Teri Santos RN Medical Secretary Teacher 01:52 PM Aneesh Mckee RT (R) Scrub 01:52 PM Indications Indication Unstable Angina Procedures Performed Procedure L HRT ARTERY/VENTRICLE ANGIO IV Doppler BLD Flow 1st Vessel PRQ CARD ANDREA STENT W/ANGIO 1 VSL Pre-Procedure Checklist Informed consent is complete signed and on chart. H&P is on chart. ID band is on and ID verified with patient. Patient NPO for procedure The procedure was described for the patient and questions were answered. Blood Pressure: 128/72 ECG is on chart. Rhythm: NSR Plan of Care Patient will tolerate the procedure without complications. Adequate level of comfort will be maintained. Hemodynamics will remain stable Patient will recover from procedure without complications. Respiratory function will be maintained. Cardiac rhythm will remain stable. Patient temperature will be maintained. Patient and/or family have verbalized understanding of the procedure. Patient Education Chief Complaint/Reason for Test: Cardiac Cath Developmental Category: Adult (18-64 years) Developmentally Appropriate for Age: Yes Learning Barriers: None Education Needs: Procedure Education Method: Verbal Information Taught: Cardiac Cath Educational Evaluation: Able to repeat information Intravenous Access Time IV Size Location DC'd Fluid/Drip Rate Units RN 12:35 PM 20g 1 05/15" Patent On Arrival Rt Antecubital 0.9NaCl 25 ml/hr Ya Austin RN Allergies ibuprofen propoxyphene gabapentin darvocet acetaminophen promethazine Vital Signs Time BP (mmHg) HR (bpm) O2 Sat. RR (bpm) LOC 12:35 PM 154 / 89 68 98 % 15 5 = Fully awake and oriented or at pre-proc level 01:53 PM / % 5 = Fully awake and oriented or at pre-proc level 01:53 PM / % 5 = Fully awake and oriented or at pre-proc level 02:08 PM / % 4 = Oriented but drowsy 02:24 PM / % 4 = Oriented but drowsy 02:39 PM / % 4 = Oriented but drowsy 02:54 PM / % 4 = Oriented but drowsy 02:34 PM 101 / 69 83 97 % 17 02:39 PM 96 / 53 75 98 % 15 02:44 PM 95 / 61 78 99 % 13 02:49 PM 107 / 75 83 97 % 15 02:54 PM 104 / 67 81 98 % 34 02:59 PM 111 / 67 95 100 % 21 03:04 PM 101 / 72 81 95 % 29 03:09 PM 116 / 78 105 98 % 26 03:14 PM 115 / 75 72 100 % 9 03:19 PM 115 / 77 70 100 % 21 02:04 PM 128 / 72 67 100 % 18 02:09 PM 103 / 71 80 97 % 20 02:14 PM 106 / 62 75 100 % 13 02:19 PM 106 / 70 85 97 % 20 02:24 PM 103 / 61 85 97 % 12 02:29 PM 108 / 64 84 98 % 16 03:38 PM 124 / 79 66 100 % 18 5 = Fully awake and oriented or at pre-proc level 03:55 PM 119 / 62 60 99 % 18 5 = Fully awake and oriented or at pre-proc level 06:15 AM 107 / 55 68 99 % 18 5 = Fully awake and oriented or at pre-proc level Procedural Medications Time Medication Dose Units Method Given By 02:05 PM Versed 2 mg Intravenous Teri Santos RN 02:05 PM Fentanyl 50 mcg Intravenous Teri Santos RN 02:13 PM Lidocaine 2% 0.5 ml Subcutaneous Todd Leon MD, FACC 02:16 PM Heparin 4000 units Nitroglycerin 200 mcg Verapamil 2.5 mg Intraarterial Todd Leon MD, FACC 02:19 PM Versed 1 mg Intravenous Teri Santos RN 02:19 PM Fentanyl 25 mcg Intravenous Teri Santos RN 02:32 PM Versed 1 mg Intravenous Teri Santos RN 02:32 PM Fentanyl 25 mcg Intravenous Teri Santos RN 02:38 PM Lidocaine 2% 18 ml Subcutaneous Todd Leon MD, FACC 02:51 PM Nitroglycerin 200 mcg Intracoronary Todd Leon MD 02:54 PM Adenosine 697 ml/hr Intravenous Georges Degroot RN 03:22 PM Brilinta 90 mg Orally Buck Degroot RN ASA Classification: CLASS II- Mild systemic disease (i.e. well-controlled diabetes, hypertension, asthma, cigarette smoking) Lizz Score Preprocedure Postprocedure Activity 2- Moves 4 extremities sustained head lift Activity 2- Moves 4 extremities sustained head lift Circulation 2- SBP +/= 20 points of pre-anesthetic level Circulation 2- SBP +/= 20 points of pre-anesthetic level Consciousness 2- Awake and alert oriented x 3 Consciousness 2- Awake and alert oriented x 3 O2 Saturation 2- Able to maintain O2 satruation of 92% on room air O2 Saturation 2- Able to maintain O2 satruation of 92% on room air Respiratory 2- Able to deep breathe and cough well Respiratory 2- Able to deep breathe and cough well Total Score 10 Total Score 10 Contrast Agent: Isovue Diagnostic Contrast: 138 ml Total Contrast: 138 ml Fluoro Dose: 965 mGy Activated Clotting Time Time Seconds to Clot 02:53 PM 301 03:23 PM 221 Procedure Log Time Note Enter By 01:52 PM Pt arrived to laboratory equipment installer 2 at 13:52 [facility] 01:52 PM Ya Austin RN Position: Monitor Time in: 13:52 mmamy 01:52 PM Teri Santos RN Position: Medical Secretary Teacher Time in: 13:52 mm 01:52 PM Aneesh Mckee (R) Position: Scrub Time in: 13:52 mmamy 01:53 PM Patient charges- Angio tray pack, Navilyst 3mm J, Pulse Oximetry and ACIST tubing and transducer oumm:53 PM Case Delayed No mmers :53 PM Hair removed from procedure site in procedure lab using clippers. Right wrist & Right groin prepped with Chloraprep by Aneesh Mckee RT (R), safety strap applied then patient was draped. Skin intact. oumm 01:53 PM Physican paged/called 13:53. oumm:53 PM Physican responded and notified patient is ready 13:53 oummers 01:53 PM Physician arrived 13:53 oummers 01:53 PM Meet and greet completed mm:53 PM Sign in performed according to hospital policy. mm:53 PM Procedure start 13:53 oummers 01:53 PM Time: 13:53 Patient comfortable and pain free: Yes mm53 PM Time: 13:53LOC: 5 = Fully awake and oriented or at pre-proc level [facility] :53 PM CathStat 01:53 PM Case Start 01:56 PM Clinical Presentation: Unstable angina [facility] 02:01 PM Vitals capture started with the following parameters, Patient=Adult, Interval=5 min, Initial Bsibrrjo=828 mmHg, Deflation Rate=5 mmHg, Cuff placed on Right Arm 02:04 PM Vitals capture started with the following parameters, Patient=Adult, Interval=5 min, Initial Sshkiwna=442 mmHg, Deflation Rate=5 mmHg, Cuff placed on Right Arm 02:04 PM HR=67 bpm, HARS=789/72 mmhg, CxX8=025.0 %, Resp=18 B/min 02:05 PM Time: 14:05 Versed 2 mg Intravenous Given by Teri Santos RN 02:05 PM Time: 14:05 Fentanyl 50 mcg Intravenous Given by Teri Santos RN 02:07 PM Recorded ECG: HR=68 Condition=Condition 1 02:08 PM Time: 13:53LOC: 5 = Fully awake and oriented or at pre-proc level [facility] 02:09 PM Time: 13:53 Patient comfortable and pain free: Yes [facility] 02:09 PM HR=80 bpm, PPWU=931/71 mmhg, SpO2=97.0 %, Resp=20 B/min 02:10 PM Pressure channel 1 zeroed. 02:13 PM Time out performed according to hospital policy [facility] 02:14 PM Time: 14:13 0.5 ml Lidocaine 2% to right radial Subcutaneous Given by Todd Leon MD, FACC [facility] 02:14 PM Access obtained by percutaneous puncture. 6Fr 10cm Terumo Glidesheath sheath placed in right Femoral artery. [id number] [facility] 02:14 PM HR=75 bpm, EQHX=410/62 mmhg, HmC8=837.0 %, Resp=13 B/min, Comment=NSR 02:15 PM Time: 14:15 Patient given 4,000 units Heparin, 200 mcg Nitroglycerin, and 2.5 mg Verapamil Intraarterial by Todd Leon MD, FACC. This is given to reduce risk of vessel spasm and thrombosis. mm 02:15 PM 0.035 260cm Navilyst 3mmJ wire [id number] mm 02:15 PM 5Fr TIG catheter inserted over the wire [facility] mm 02:16 PM wire removed. mm 02:17 PM RCA angiography performed in multiple views. oumm 02:18 PM Recorded Pressure: Ao, HR=84, Condition=Condition 1 (Aorta) Ao 60/29/50 02:18 PM LCA angiography performed in multiple views. mm 02:18 PM Recorded Pressure: Ao, HR=88, Condition=Condition 1 (Aorta) Ao 101/77/89 02:19 PM Time: 14:19 Versed 1 mg Intravenous Given by Teri Santos RN [facility] 02:19 PM Time: 14:19 Fentanyl 25 mcg Intravenous Given by Teri Santos RN [facility] 02:19 PM HR=85 bpm, WODP=184/70 mmhg, SpO2=97.0 %, Resp=20 B/min, Comment=NSR 02:20 PM ASA Class CLASS II- Mild systemic disease (i.e. well-controlled diabetes, hypertension, asthma, cigarette smoking) mm 02:21 PM Lesion found in Proximal RCA. Pre Stenosis: 70 Pre JANA Flow: 3: Complete and Brisk Flow/Perfusion 02:21 PM Catheter removed 02:22 PM Coronary Dominance: Left tsoumm 02:22 PM Right Coronary, Right Posterior Descending Arteries with Right Posterolateral and Acute Marginal branches with 70 % stenosis. If graft is supplying this area, 0 % stenosis mm 02:23 PM Inflation device was opened. mm 02:24 PM 6Fr EBU 3.0 Medtronic guide catheter was used to cannulate the PCI vessel successfully. reused? No oummers :24 PM Time: 14:09 Patient comfortable and pain free: Yes mm:24 PM Time: 14:08LOC: 4 = Oriented but drowsy tsoumm 02:24 PM HR=85 bpm, DDVU=295/61 mmhg, SpO2=97.0 %, Resp=12 B/min, Comment=NSR 02:25 PM Lesion found in Mid Circumflex. Pre Stenosis: 40 Pre JANA Flow: 3: Complete and Brisk Flow/Perfusion tsoummers 02:28 PM Guide catheter removed intact. tsoummers 02:29 PM HR=84 bpm, KHEC=605/64 mmhg, SpO2=98.0 %, Resp=16 B/min, Comment=NSR 02:30 PM 6Fr RBL 3.5 Convey guide catheter was used to cannulate the PCI vessel successfully. reused? No oummers 02:32 PM Time: 14:32 Versed 1 mg Intravenous Given by Teri Santos RN oumm 02:32 PM Time: 14:32 Fentanyl 25 mcg Intravenous Given by Teri Santos RN [facility] 02:34 PM Guide catheter removed intact. mmers 02:34 PM 6Fr JL4 Runway guide catheter was used to cannulate the PCI vessel successfully. reused? No tsoummers 02:34 PM HR=83 bpm, UYCQ=539/69 mmhg, SpO2=97.0 %, Resp=17 B/min, Comment=NSR 02:36 PM Guide catheter removed intact. mm 02:38 PM Time: 14:38 18 ml Lidocaine 2% to right groin Subcutaneous Given by Todd Leon MD, [facility] tsoummers 02:39 PM Time: 14:24LOC: 4 = Oriented but drowsy tsoummers 02:39 PM Time: 14:24 Patient comfortable and pain free: Yes oummers 02:39 PM HR=75 bpm, NIBP=96/53 mmhg, SpO2=98.0 %, Resp=15 B/min, Comment=NSR 02:39 PM Access obtained by percutaneous puncture. 6Fr 10cm Terumo Douglas sheath placed in right Femoral artery. [id number] oummers 02:40 PM EBU 3.0 reinserted. tsoummers 02:42 PM Recorded Pressure: Ao, HR=77, Condition=Condition 1 (Aorta) Ao 99/58/76 02:43 PM LCA angiography performed in multiple views. mmers 02:44 PM HR=78 bpm, NIBP=95/61 mmhg, SpO2=99.0 %, Resp=13 B/min, Comment=NSR 02:47 PM .014 [place] 190cm guide wire across target lesion- successful. reused? No tsoumm 02:49 PM HR=83 bpm, IDLC=505/75 mmhg, SpO2=97.0 %, Resp=15 B/min, Comment=NSR 02:49 PM ACT running. 02:50 PM Preparing for FFR. 02:52 PM Time: 14:51 Nitroglycerin 200 mcg Intracoronary Given by Todd Leon MD 02:53 PM At 14:53 the ACT was 301 seconds. 02:54 PM Asist FFR Catheter advanced to target lesion. 02:54 PM Time: 14:39LOC: 4 = [facility] 02:[facility] PM HR=81 bpm, FSGB=608/67 mmhg, SpO2=98.0 %, Resp=34 B/min, Comment=NSR 02:54 PM Time: 14:39 Patient comfortable and pain free: Yes 02:54 PM Time: 14:54 Adenosine 697 ml/hr administered Intravenous by Georges Degroot RN 02:55 PM Adenosine running for 2 minutes. 02:56 PM FFR Measurement: 0.87 in the 1st Diagonal. mm 02:57 PM Adenosine stopped. mm 02:57 PM Recorded Pressure: Ao, HR=95, Condition=Condition 1 (Aorta) Ao 103/75/89 02:58 PM Adenosine restarted for 2 minutes. mm 02:59 PM HR=95 bpm, QLCF=295/67 mmhg, BlD6=230.0 %, Resp=21 B/min, Comment=NSR 03:00 PM FFR Measurement: 0.79 distal LAD. mm 03:01 PM FFR Measurement: 0.92 mid LAD. mm 03:01 PM Adenosine stopped. mm 03:02 PM Flow Wire/Catheter removed intact mm 03:04 PM Lesion found in 1st Marginal. Pre Stenosis: 80 Pre JANA Flow: mm 03:04 PM Circumflex, Obtuse Marginal, Left Posterior Descending, and Left Posterolateral Coronary Arteries with 80 % stenosis. If graft is supplying this area, 0 % stenosis [facility] 03:04 PM HR=81 bpm, XEHA=115/72 mmhg, SpO2=95.0 %, Resp=29 B/min, Comment=NSR 03:04 PM Lesion found in Mid LAD. Pre Stenosis: 50 Pre JANA Flow: 3: Complete and Brisk Flow/Perfusion tsoummers 03:04 PM Lesion found in Mid LAD. Pre Stenosis: 65 Pre JANA Flow: 3: Complete and Brisk Flow/Perfusion tsoummers 03:05 PM Lesion found in Distal LAD. Pre Stenosis: 30 Pre JANA Flow: 3: Complete and Brisk Flow/Perfusion tsoummers 03:05 PM Mid/Distal Left Anterior Descending Coronary Artery and diagonal branches with 65% stenosis. If graft is supplying this area, 0 % stenosis tsoummers 03:05 PM Recorded Pressure: Ao, HR=69, Condition=Condition 1 (Aorta) Ao 95/63/79 03:06 PM 2.25mm x 12mm Synergy drug-eluting stent across target lesion- successful Lot #[id number] tsoummers 03:06 PM Stent deployed @ 16 silas for 24 seconds tsoummers 03:08 PM Stent delivery system removed intact. tsoummers 03:08 PM Preparing to FFR post stent deployment. tsoummers 03:09 PM FFR wire reinserted. tsoummers 03:09 PM Adenosine running for 2 minutes. tsoummers 03:09 PM FZ=125 bpm, UQVP=419/78 mmhg, SpO2=98.0 %, Resp=26 B/min, Comment=NSR 03:09 PM Time: 14:54LOC: 4 = Oriented but drowsy tsoummers 03:09 PM Time: 14:54 Patient comfortable and pain free: Yes tsoummers 03:10 PM Recorded Pressure: Ao, HR=95, Condition=Condition 1 (Aorta) Ao 100/62/81 03:11 PM Adenosine off. tsoummers 03:11 PM FFR wire and guidewire removed, intact. tsoummers 03:11 PM J-wire reinserted. tsoummers 03:11 PM Guide catheter removed, intact. tsoummers 03:12 PM Procedure completed at 15:12 tsites 03:12 PM Bolus angiogram of right Femoral complete: 4 ml/sec for a total of 7 mls tsoummers 03:12 PM Did you address JANA flow and Dominance? Yes tsoummers 03:14 PM HR=72 bpm, OVVE=747/75 mmhg, QaX8=951.0 %, Resp=9 B/min, Comment=NSR 03:15 PM 5Fr Pigtail catheter inserted over the wire DNC oumm 03:16 PM Catheter selectively placed in left ventricle tsmm 03:16 PM Wire removed, intact. tsoummers 03:16 PM Recorded Pressure: LV, HR=28, Condition=Condition 1 (Left Ventricle) LV 128/6/47 03:17 PM Recorded Pressure: LV, Ao, HR=65, Condition=Condition 1 (Left Ventricle) LV 120/10/36, (Aorta) Ao 134/66/93 03:18 PM Bolus angiogram of left Ventricle complete: 10 ml/sec for a total of 20 mls oumm 03:18 PM Wire and catheter removed, intact. mm 03:19 PM HR=70 bpm, WSZG=244/77 mmhg, WaJ8=264.0 %, Resp=21 B/min, Comment=NSR 03:20 PM Sign out completed: Radiation Dose 965.02 mGy Fluoro Time: 14.5 Isovue 370 - 200ml contrast 138 ml given by Todd Leon MD, [facility]. Complications: NoneCardiac Rehab Consult needed: YesConfirmed administered medications: Yes oummers 03:20 PM Isovue 370 - 500ml,1 Bottle(s) used. tsoummers 03:20 PM Right femoral Sheath left in place to be pulled on floor/holding areaV+Pad tsoummers 03:20 PM Estimated Blood Loss: less than 20cc tsoummers 03:22 PM Time: 15:22 Brilinta 90 mg Orally Given by Georges Degroot RN tsoummers 03:23 PM Post ECG NSR tsoummers 03:23 PM Post Blood Pressure 115/77 tsoummers 03:23 PM At 15:23 the ACT was 221 seconds. tsoummers 03:25 PM Vitals capture stopped. 03:25 PM Family placed in consult room. tsoummers 03:25 PM Plavix, Effient or Brilinta given Yes tsoummers 03:25 PM 15:25 Post Pulses Bilateral DP & PT 2+ tsoummers 03:25 PM 15:25 Post Pulses Bilateral radial 2+ tsoummers 03:25 PM Information taught Cardiac Cath, PCI, and [facility] 03:[facility] PM Education needs Procedure, Plan of Care, and Responsibilities of Patient in Care mm 03:25 PM Learning barriers :None mm 03:25 PM Education Methods Verbal mm 03:25 PM Education evaluation Able to repeat information [facility] 03:26 PM Site status No bleeding/hematoma - Rt Wrist as reported by Aneesh Mckee RT (R) at 15:25 tsoummers 03:26 PM Site status No bleeding/hematoma - Rt Groin as reported by Aneesh Mckee RT (R) at 15:26 [facility] 03:26 PM 11 ml air in Vasc Band. [facility] 03:26 PM Delay to floor waiting for 2N bed to be clean [facility] 03:30 PM Report given to Nikolay CROWDER Pt taken to Holding room Room #3. 15:28 [facility] 03:30 PM [facility]: 15:30 [facility] 03:31 PM Lesion found in 1st Diagonal. Pre Stenosis: 70 Pre JANA Flow: mm 03:31 PM Mid/Distal Left Anterior Descending Coronary Artery and diagonal branches with 70% stenosis. If graft is supplying this area, 0 % stenosis [facility] 04:24 PM Delay to floor Bed availability kwitte 04:24 PM Complications: None kwitte 04:24 PM Report given to Lori CROWDER Pt taken to Holding room Room #[id number]. 16:24 kwitte 04:24 PM Patient out of room: 16:24 kwitte Complications Complication None None Hemodynamics Pressures Site Systolic/A Wave Diastolic/V Wave Mean AO 60 29 50 AO 101 77 89 AO 99 58 76 AO 103 75 89 AO 95 63 79 AO 100 62 81 LV 128 6 47 LV 120 10 36 AO 134 66 93 Post Procedure Information Blood Pressure: 115/77 mmHg Rhythm: NSR Post procedural instructions were given Closure Device Time Device Success/Fail 06/06/2017 3:30:00 PM Mechanical Compression Successful Site Checks Time Location Status Staff Sheath In? Note 03:25 PM Rt Wrist No bleeding/hematoma Aneesh Mckee RT (R) 03:26 PM Rt Groin No bleeding/hematoma Aneesh Mckee RT (R) 03:38 PM Rt Groin No bleeding/ No Hematoma Nikolay Rod RN Yes 03:38 PM Rt Wrist No bleeding/ No Hematoma Nikolay Rod RN Vasc band in place. 03:55 PM Rt Wrist No bleeding/ No Hematoma Nikolay Rod RN 03:55 PM Rt Groin No bleeding/ No Hematoma Nikolay Rod RN Yes 04:15 PM Rt Wrist No bleeding/ No Hematoma Nikolay Rod RN VAsc band in place 04:15 PM Rt Groin No bleeding/ No Hematoma Nikolay Rod RN Pulses Time Site Pre-Procedure Post-Procedure Note 06/06/2017 12:35:00 PM Bilateral radial 2+ 06/06/2017 12:35:00 PM Bilateral DP & PT 2+ 3:25:00 PM Bilateral DP & PT 2+ 3:25:00 PM Bilateral radial 2+ 06/06/2017 3:55:00 PM Bilateral DP & PT 2+ Updated by Kaylie Malik RT (R) on 06/11/2017 1:37:31 PM Kaylie Malik RT electronically signed on 06/11/2017 1:38:03 PM with status of Final
== END 2017-06-07 10:30 | disposition home or self-care (01) | DRG 247 ==
LOC: 3BNU → 2NNU 16:24
PROVIDERS: ADMIT Nurse Practitioner Family; ATTEND Internal Medicine Interventional Cardiology